=== PATIENT | female | born 1960 | race Two or more races ===

== ENCOUNTER 2022-12-21 20:54 | Inpatient (IN) | payer MEDICARE, OTHER ==
[~2022-12-21] VITALS: Ht 170.2 cm; Wt 87.0 kg
[2022-12-21] MEDS ORDERED: cloNIDine HCL 0.1 MG TAB PO ONE (21:00)
[2022-12-21 21:24] LABS: Basophils # (auto) 0.1 10 ^3/uL (0-0.2); Basophils % (auto) 0.5 % (0.0-2.0); Eosinophils # (auto) 0.3 10 ^3/uL (0-0.8); Eosinophils % (auto) 2.5 % (0.0-7.0); Hematocrit 33.1 % (36.0-46.0); Hemoglobin 11.2 g/dL (12.2-16.2); Lymphocytes # (auto) 1.3 10 ^3/uL (0.4-5.4); Lymphocytes % (auto) 12.3 % (10.0-50.0); Mean Corpuscular Hemoglobin 31.4 pg (28.0-32.0); Mean Corpuscular Hgb Conc. 33.7 g/dL (32.0-36.0); Monocytes # (auto) 0.6 10 ^3/uL (0-1.3); Monocytes % (auto) 6.1 % (0.0-12.0); Neutrophils # (auto) 8.2 10 ^3/uL (1.6-8.6); Neutrophils % (auto) 78.6 % (37.0-80.0); Red Blood Cells 3.56 10^6/uL (4.0-5.20); White Blood Cell 10.4 10^3/uL (4.4-10.8)
[2022-12-21 21:38] LABS: Urine Bacteria FEW /hpf (None Seen); Urine Blood Negative /uL (Negative); Urine Clarity Clear (Clear); Urine Color Colorless (Yellow); Urine Protein, UAD 2+ (Negative); Urine Specific Gravity 1.004 (1.001-1.035); Urine Urobilinogen Normal (Negative); Urine WBC <1 /hpf (0 - 5); Urine pH 6.5 (5.0-8.0)
[2022-12-21 21:39] LABS: Albumin 3.5 g/dL (3.4-5.0); Calcium 9.1 mg/dL (8.5-10.1); Magnesium 2.3 mg/dL (1.6-2.6); Potassium 4.8 mmol/L (3.5-5.1)
[2022-12-21 21:41] LABS: INR 1.01 (0.9-1.15); Partial Thromboplastin Time 30.7 SEC (24.5-34.5); Prothrombin Time 10.6 sec (9.3-11.8)
[2022-12-21 21:42] LABS: BUN/Creatinine Ratio 19.1 (10.0-20.0); Bilirubin, Total 0.2 mg/dL (0.2-1.0); Total Protein 8.4 g/dL (6.4-8.2)
[2022-12-21] MEDS ORDERED: ACETAMINOPHEN 325 MG TAB PO PRN (23:00)
[2022-12-21] MEDS ORDERED: hydrALAZINE HCL 20 MG/ML VL IV PRN (23:00)
[2022-12-21] MEDS ORDERED: HYDROcodone-ACET 5/325MG TAB PO PRN (23:00)
[2022-12-21] MEDS ORDERED: DEXTROSE (50%) 50ML SYRG IV PRN (23:00)
[2022-12-21] MEDS ORDERED: NITROGLYCERIN 0.4 MG SL TAB SL PRN (23:00)
[2022-12-21] MEDS ORDERED: DOCUSATE SOD 100 MG CAP PO PRN (23:00)
[2022-12-21] MEDS ORDERED: MORPHINE SULFATE INJ 2 MG/ml SYRG IV PRN (23:00)
[2022-12-21 23:30] VITALS: O2SAT 98
[2022-12-22] MEDS ORDERED: PANTOPRAZOLE 40 MG/10 ML VIAL INJ IV ONE (00:17)
[2022-12-22] MEDS: SODIUM CHLORIDE 0.9% 1,000 ML IV SCH ×2 (00:17→15:54)
[2022-12-22 06:01] LABS: Basophils # (auto) 0.1 10 ^3/uL (0-0.2); Basophils % (auto) 0.7 % (0.0-2.0); Eosinophils # (auto) 0.2 10 ^3/uL (0-0.8); Eosinophils % (auto) 2.9 % (0.0-7.0); Hematocrit 31.4 % (36.0-46.0); Hemoglobin 10.8 g/dL (12.2-16.2); Lymphocytes # (auto) 1.6 10 ^3/uL (0.4-5.4); Lymphocytes % (auto) 19.8 % (10.0-50.0); Mean Corpuscular Hgb Conc. 34.4 g/dL (32.0-36.0); Mean Corpuscular Volume 92.8 fL (80.0-100.0); Monocytes # (auto) 0.5 10 ^3/uL (0-1.3); Monocytes % (auto) 6.9 % (0.0-12.0); Neutrophils # (auto) 5.5 10 ^3/uL (1.6-8.6); Neutrophils % (auto) 69.7 % (37.0-80.0); Red Blood Cells 3.38 10^6/uL (4.0-5.20); Red Cell Distribution Width 13.2 % (11.8-14.3); White Blood Cell 7.9 10^3/uL (4.4-10.8)
[2022-12-22 06:13] LABS: Potassium 4.5 mmol/L (3.5-5.1)
[2022-12-22 06:21] LABS: Albumin 3.3 g/dL (3.4-5.0); BUN/Creatinine Ratio 19.8 (10.0-20.0); Bilirubin, Total 0.2 mg/dL (0.2-1.0); Calcium 8.9 mg/dL (8.5-10.1); Total Protein 7.7 g/dL (6.4-8.2)
[2022-12-22] MEDS: ACCU-CHEK COMFORT CURVE STRIP VI SCH ×3 (06:38→17:30)
[2022-12-22] MEDS: InsuLIN REG 1unit/0.01ml Soln (100units/ml) SC SCH ×3 (06:46→17:30)
[2022-12-22 08:00] VITALS: PULSE 66; RESP 14; O2SAT 96
[2022-12-22] MEDS: ONDANSETRON HCL 4 MG/2 ML VIAL IV PRN ×2 (08:32→14:35)
[2022-12-22] MEDS: MORPHINE SULFATE INJ 2 MG/ml SYRG IV PRN ×2 (09:27→14:36)
[2022-12-22] MEDS ORDERED: amLODIPine BESYLATE 5 MG TAB PO SCH (10:00)
[2022-12-22] MEDS ORDERED: ASPirin 81 mg TAB PO SCH (10:00)
[2022-12-22] MEDS ORDERED: FAMOTIDINE (10MG/ML) 2ML VL IV SCH (10:00)
[2022-12-22 15:54] VITALS: BP 127/56; PULSE 64; RESP 16; TEMP 97.8; O2SAT 95
[2022-12-22] MEDS ORDERED: AML5T PO (16:29)
[2022-12-22] MEDS ORDERED: FURO1TAB33 PO (16:29)
[2022-12-22 16:59] VITALS: O2SAT 98
[2022-12-22 17:21] VITALS: BP 120/53; TEMP 36.6
[2022-12-22] MEDS ORDERED: ATORVASTATIN 20 MG TAB PO SCH (22:00)
[2022-12-22] MEDS ORDERED: InsuLIN REG 1unit/0.01ml Soln (100units/ml) SC SCH (22:00)
== END 2022-12-22 17:45 | disposition home or self-care (01) | DRG 305 ==
LOC: EDBD 20:54 → ER 20:57 → TELE 22:53 → TELE-E-ADS 12-22 15:59
PROVIDERS: ADMIT Nurse Practitioner Family
DX: I16.1 Hypertensive emergency (principal); N17.9 Acute kidney failure, unspecified; N18.4 Chronic kidney disease, stage 4 (severe); E11.22 Type 2 diabetes mellitus with diabetic chronic kidney disease; I95.9 Hypotension, unspecified; E11.65 Type 2 diabetes mellitus with hyperglycemia; E11.40 Type 2 diabetes mellitus with diabetic neuropathy, unspecified; I12.9 Hypertensive chronic kidney disease with stage 1 through stage 4 chronic kidney disease, or unspecified chronic kidney disease; R07.9 Chest pain, unspecified; R79.89 Other specified abnormal findings of blood chemistry; I25.10 Atherosclerotic heart disease of native coronary artery without angina pectoris; Z85.038 Personal history of other malignant neoplasm of large intestine; Z86.73 Personal history of transient ischemic attack (TIA), and cerebral infarction without residual deficits; Z87.891 Personal history of nicotine dependence; Z89.519 Acquired absence of unspecified leg below knee; Z95.1 Presence of aortocoronary bypass graft; Z88.8 Allergy status to other drugs, medicaments and biological substances; Z88.2 Allergy status to sulfonamides
CPT/HCPCS: 36415; 70450; 76705; 80053; 81001; 82962; 83036; 83735; 83880; 84484; 85025; 85610; 85730; 86850; 86900; 86901; 87081; 93005; 93306; C9113; G0378; J1815; J2405; J3490

== ENCOUNTER 2023-05-31 16:38 | Emergency (ER) | payer MEDICARE, OTHER ==
[~2023-05-31] VITALS: Ht 170.2 cm; Wt 90.0 kg
[~2023-05-31 16:38] MED LIST: AML5T PO; FURO1TAB33 PO
[2023-05-31 18:30] LABS: Urine Bacteria MANY /hpf (None Seen); Urine Blood Negative /uL (Negative); Urine Clarity Clear (Clear); Urine Color Colorless (Yellow); Urine Protein, UAD 2+ (Negative); Urine Specific Gravity 1.012 (1.001-1.035); Urine Urobilinogen Normal (Negative); Urine WBC 3 /hpf (0 - 5)
[2023-05-31 21:48] VITALS: BP 113/67; PULSE 91; RESP 18; TEMP 97.4; O2SAT 97
== END 2023-05-31 22:20 | disposition home or self-care (01) ==
LOC: ER 16:38
DX: R22.42 Localized swelling, mass and lump, left lower limb (principal); E11.22 Type 2 diabetes mellitus with diabetic chronic kidney disease; I12.9 Hypertensive chronic kidney disease with stage 1 through stage 4 chronic kidney disease, or unspecified chronic kidney disease; N18.9 Chronic kidney disease, unspecified; Z86.73 Personal history of transient ischemic attack (TIA), and cerebral infarction without residual deficits; Z88.2 Allergy status to sulfonamides; Z87.891 Personal history of nicotine dependence
CPT/HCPCS: 81001; 93971

== ENCOUNTER 2024-04-11 21:25 | Inpatient (IN) | payer MEDICARE ==
[~2024-04-11] VITALS: Ht 170.2 cm; Wt 76.2 kg
--- NOTE | 2024-04-11 21:42 | ED.PDOC ---
HPI Comments 63-year-old female came to ER due to chest pains. Patient does have history of hypertension, diabetes, coronary artery disease, TIA status post CABG, left BKA and right foot partial amputation. States she has been having intermittent episodes of chest pains since yesterday, left-sided, sharp, radiating to her left arm. Associated with cough, nausea, shortness of breath and congestion. Blood pressure upon arrival was 216/80 mmHg Chief Complaint: Chest pain Time Seen by MD: 21:41 Primary Care Provider: MARYCHUY Reviewed Notes: Nurses Notes Allergies: Coded Allergies: Metoclopramide (Verified Allergy, Unknown, 12/21/22) Sulfa Antibiotics (Verified Allergy, Unknown, 12/21/22) Home Meds Active Scripts Furosemide (Lasix) 20 Mg Tb, 1 TAB PO DAILY for 30 Days, #30 TAB 1 Refill Prov:NELSON REILLY MD 12/22/22 Amlodipine Besylate (NORVASC TABLET) 5 Mg Tb, 5 MG PO DAILY for 30 Days, #30 TAB Prov:NELSON REILLY MD 12/22/22 Information Source: Patient Mode of Arrival: EMS Severity: Moderate Timing: Minutes Duration: Since onset Prehospital treatment: None Location: Chest (L) Radiation: Arm (L) Quality: Sharp Onset: At Rest Cardiac Risk Factors: HTN, Diabetes PE Risk Factors: None History of: Similar pain in past Associated Signs and Symptoms: SOB, Palpitations, Diaphoresis Past Medical History PAST MEDICAL HISTORY: Anemia, CAD, CKF, DM, HTN, [place], TIA Surgical History: BKA (Left), CABG, , Tonsillectomy Surgical History (Other): Right foot partial amputation [employer] History: No Pertinent [employer] History Family History Family History: Reviewed,noncontributory to illness Social History Smoker: Quit Greater Than 1 Year Alcohol: Sober Drugs: Denies Drug Use Lives In: Home Constitutional: denies: chills, diaphoresis, fatigue, fever, malaise, sweats, weakness, others EENTM: denies: blurred vision, double vision, ear bleeding, ear discharge, ear drainage, ear pain, ear ringing, eye pain, eye redness, hearing loss, mouth pain, mouth swelling, nasal discharge, nose bleeding, nose congestion, nose pain, photophobia, tearing, throat pain, throat swelling, voice changes, others Respiratory: reports: SOB at rest, shortness of breath; denies: cough, hemoptysis, orthopnea, SOB with excertion, stridor, wheezing, others Cardiovascular: reports: chest pain, dizzy spells, left arm pain; denies: diaphoresis, Dyspnea on exertion, edema, irregular heart beat, lightheadedness, palpitations, PND, syncope, others Gastrointestinal: denies: abdomen distended, abdominal pain, blood streaked bow els, constipated, diarrhea, dysphagia, difficulty swallowing, hematemesis, melena, nausea, poor appetite, poor fluid intake, rectal bleeding, rectal pain, vomiting, others Genitourinary: denies: abnormal vagina bleeding, burning, dyspareunia, dysuria, flank pain, frequency, hematuria, incontinence, pain, , vagina discharge, urgency, others Neurological: reports: dizziness; denies: fainting, headache, left sided numbness, left sided weakness, numbness, paresthesia, pre-existing deficit, right sided numbness, right sided weakness, seizure, speech problems, tingling, tremors, weakness, others Musculoskeletal: denies: back pain, gout, joint pain, joint swelling, muscle pain, muscle stiffness, neck pain, others Integumetry: denies: bruises, change in color, change in hair/nails, dryness, laceration, lesions, lumps, rash, wounds, others Allergic/Immunocompromised: denies: Difficulty Healing, Frequent Infections, Hives, Itching, others Hematologic/Lymphatic: denies: anemia, blood clots, easy bleeding, easy bruising, swollen glands, others Endocrine: denies: excessive hunger, excessive sweating, excessive thirst, excessive urination, flushing, intolerance to cold, intolerance to heat, unexplained weight gain, unexplained weight loss, others Psychiatric: denies: anxiety, bipolar disorder, depression, hopeless, panic di sorder, schizophrenia, sleepless, suicidal, others Physical Exam General Appearance: Mild Distress, Normal HEENT: Normal ENT Inspection, Pharynx Normal, TMs Normal Neck: Full Range of Motion, Non-Tender, Normal, Normal Inspection Respiratory: Chest Non-Tender, Lungs Clear, No Accessory Muscle Use, No Respiratory Distress, Normal Breath Sounds Cardiovascular: No Edema, No JVD, No Murmur, No Gallop, Normal Peripheral Pulses, Regular Rate/Rhythm Breast Exam: Deferred Gastrointestinal: No Organomegaly, Non Tender, No Pulsatile Mass, Normal Bowel Sounds, Soft Genitalia: Deferred Pelvic: Deferred Rectal: Deferred Extremities: No calf tenderness, Normal capillary refill, Normal inspection, Normal range of motion, Non-tender, No pedal edema, Other (left BKA, right par tial foot amputation) Musculoskeletal : Apperance: Normal Neurologic: Alert, hat braider II-XII nml as Tested, No Motor Deficits, Normal Affect, Normal Mood, No Sensory Deficits Cerebellar Function: Normal Reflexes: Normal Skin: Dry, Normal Color, Warm Lymphatic: No Adenopathy Was a procedure done? Was a procedure done?: No CP Differential Dx Differential Diagnosis: Angina, Anxiety / Panic Attack, Electrolyte Disorder Differential Diagnosis: CHF Differential Diagnosis: Angina, Chest Wall Pain, Costochondritis, Esophageal reflux/spasm, Gastritis, Myocardial Infarction, Pneumonia X-Ray, Labs, Meds, VS Vital Signs Date Time Temp Pulse Resp B/P (MAP) Pulse Ox O2 Delivery O2 Flow Rate FiO2 04/11/24 22:10 107 16 153/60 (91) 97 04/11/24 22:10 Room Air* 0 21 04/11/24 21:44 18 95 Room Air* 0 21 04/11/24 21:34 99.0 95 20 216/80 (125) 97 04/11/24 21:29 95 Lab Test 04/11/24 22:17 04/11/24 21:45 04/11/24 21:33 Range/Units Troponin I High Sensitivity 8 8 </=34 ng/L Urine Color Colorless Yellow Urine Clarity Clear Clear Urine pH 6.0 5.0-9.0 Urine Specific [place] 1.010 1.001-1.035 Urine Protein 2+ H Negative Urine Ketones Negative Negative Urine Blood Trace H Negative /uL Urine Nitrite Negative Negative Urine Bilirubin Negative Negative Urine Urobilinogen Normal Negative mg/dL Urine Leukocyte Esterase Negative Negative /uL Urine RBC 1 0 - 4 /hpf Urine WBC <1 0 - 5 /hpf Urine Squamous Epithelial Cells Few <5 /hpf Urine Bacteria None seen None Seen /hpf Urine Glucose 2+ H Normal mg/dL White Blood Count 8.6 4.4-10.8 10^3/uL Red Blood Count 3.26 L 4.0-5.20 10^6/uL Hemoglobin 10.0 L 12.2-16.2 g/dL Hematocrit 30.9 L 36.0-46.0 % Mean Corpuscular Volume 94.8 80.0-100.0 fL Mean Corpuscular Hemoglobin 30.8 28.0-32.0 pg Mean Corpuscular Hemoglobin Concent 32.5 32.0-36.0 g/dL Red Cell Distribution Width 13.8 11.8-14.3 % Platelet Count 312 140-450 10^3/uL Mean Platelet Volume 7.9 6.9-10.8 fL Neutrophils (%) (Auto) 63.5 37.0-80.0 % Lymphocytes (%) (Auto) 24.5 10.0-50.0 % Monocytes (%) (Auto) 5.4 0.0-12.0 % Eosinophils (%) (Auto) 6.0 0.0-7.0 % Basophils (%) (Auto) 0.6 0.0-2.0 % Neutrophils # (Auto) 5.5 1.6-8.6 10 ^3/uL Lymphocytes # (Auto) 2.1 0.4-5.4 10 ^3/uL Monocytes # (Auto) 0.5 0-1.3 10 ^3/uL Eosinophils # (Auto) 0.5 0-0.8 10 ^3/uL Basophils # (Auto) 0 0-0.2 10 ^3/uL Nucleated Red Blood Cells 0.1 % Sodium Level 141 136-145 mmol/L Potassium Level 4.6 3.5-5.1 mmol/L Chloride Level 111 H 98-107 mmol/L Carbon Dioxide Level 22 20-31 mmol/L Anion Gap 8 5-15 Blood Urea Nitrogen 35 H 9-23 mg/dL Creatinine 2.54 H 0.550-1.02 mg/dL Glomerular Filtration Rate Calc 21 >90 mL/min BUN/Creatinine Ratio 13.8 10.0-20.0 Serum Glucose 228 H 74-106 mg/dL Calcium Level 9.8 8.7-10.4 mg/dL Magnesium Level 1.7 1.6-2.6 mg/dL Total Bilirubin < 0.2 L 0.2-1.0 mg/dL Aspartate Amino Transferase (AST) 9 L 13-40 U/L Alanine Aminotransferase (ALT) 13 7-40 U/L Alkaline Phosphatase 87 46-116 U/L B-Type Natriuretic Peptide 216.55 0-100 pg/mL Total Protein 7.1 5.7-8.2 g/dL Albumin 4.1 3.2-4.8 g/dL Current Medications Medications (Trade) Dose Ordered Sig/Natalya Route Start Time Stop Time Status Last Admin Albuterol (Ventolin Medneb) 5 mg ONCE ONCE [facility] 04/11/24 21:45 04/11/24 21:46 DC 04/11/24 21:44 Ipratropium [place] (Atrovent Medneb) 0.5 mg ONCE ONCE N 04/11/24 21:45 04/11/24 21:46 DC 04/11/24 21:44 Prednisone 40 mg ONCE ONCE PO 04/11/24 21:45 04/11/24 21:46 DC 04/11/24 21:50 Time of 1ST Reevaluation: 21:35 Reevaluation 1ST: Unchanged Time of 2ND Reevaluation: 23:00 Reevaluation 2ND: Unchanged Patient Education/Counseling: Diagnosis, Treatment Family Education/Counseling: No Family Present Departure 1 Departure Time of Disposition: 23:01 Impression: Primary Impression: Acute renal injury Additional Impression: Acute coronary syndrome Disposition: ADMITTED INPATIENT Condition: Guarded Discharged With: Self Critical Care Note Critical Care Time?: Yes (35 min-critical care time only) Critical care comment: Hypertensive urgency Stability Stability form required: No Heart Score Heart Score: Heart Score Response (Comments) Value History Moderate Suspicious 1 EKG Repolarization Disturb 1 Age 45-64 1 Risk Factors >3 or Hx ASHD 2 Troponin Normal limit 0 Total 5 I personally scribed for HUI QUILES MD ([email or web address]) on 04/11/24 at 21:42. Electronically submitted by Vargas Grimm ([email or web address]). HUI QUILES MD Apr 11, 2024 21:42
[2024-04-11] MEDS: ALBUTEROL SULF 2.5 MG/0.5ML(0.5%) NEB SOLN HHN ONE (21:44)
[2024-04-11] MEDS: IPRATROPIUM BROM 0.5 MG/2.5ML INH SOL HHN ONE (21:44)
[2024-04-11] MEDS: predniSONE 20 MG TAB PO ONE (21:50)
[2024-04-11 21:51] LABS: Basophils # (auto) 0 10 ^3/uL (0-0.2); Basophils % (auto) 0.6 % (0.0-2.0); Eosinophils # (auto) 0.5 10 ^3/uL (0-0.8); Hematocrit 30.9 % (36.0-46.0); Lymphocytes # (auto) 2.1 10 ^3/uL (0.4-5.4); Lymphocytes % (auto) 24.5 % (10.0-50.0); Mean Corpuscular Hemoglobin 30.8 pg (28.0-32.0); Mean Corpuscular Hgb Conc. 32.5 g/dL (32.0-36.0); Mean Corpuscular Volume 94.8 fL (80.0-100.0); Monocytes # (auto) 0.5 10 ^3/uL (0-1.3); Monocytes % (auto) 5.4 % (0.0-12.0); Neutrophils # (auto) 5.5 10 ^3/uL (1.6-8.6); Neutrophils % (auto) 63.5 % (37.0-80.0); Nucleated Red Blood Cells % 0.1 %; Platelet Count (auto) 312 10^3/uL (140-450); Red Blood Cells 3.26 10^6/uL (4.0-5.20); Red Cell Distribution Width 13.8 % (11.8-14.3); White Blood Cell 8.6 10^3/uL (4.4-10.8)
[2024-04-11 22:00] LABS: Alanine Aminotransferase 13 U/L (7-40); Albumin 4.1 g/dL (3.2-4.8); Alkaline Phosphatase 87 U/L (46-116); Anion Gap 8 (5-15); BUN/Creatinine Ratio 13.8 (10.0-20.0); Calcium 9.8 mg/dL (8.7-10.4); Carbon Dioxide 22 mmol/L (20-31); Magnesium 1.7 mg/dL (1.6-2.6); Potassium 4.6 mmol/L (3.5-5.1); Sodium 141 mmol/L (136-145)
[2024-04-11 22:01] LABS: Total Protein 7.1 g/dL (5.7-8.2)
[2024-04-11 22:03] LABS: Urine Bacteria None Seen /hpf (None Seen)
[2024-04-11 22:05] LABS: Aspartate Aminotransferase 9 U/L (13-40); Bilirubin, Total < 0.2 mg/dL (0.2-1.0); Blood Urea Nitrogen 35 mg/dL (9-23); Chloride 111 mmol/L (98-107); Glucose 228 mg/dL (74-106)
--- NOTE | 2024-04-11 22:26 | DVH ---
EXAMINATION: AP portable chest radiograph CLINICAL HISTORY: SOB COMPARISON: None TECHNIQUE: Single view of the chest FINDINGS: Negative AP chest. No dominant consolidations. The costophrenic angles are clear. No sizable pleural effusions or pneumo thorax identified. The cardiomediastinal silhouette appears within normal limits given technique. IMPRESSION: 1. Negative AP chest.
[2024-04-11 22:47] LABS: Urine Blood TRACE /uL (Negative); Urine Clarity Clear (Clear); Urine Color Colorless (Yellow); Urine Protein, UAD 2+ (Negative); Urine Urobilinogen Normal (Negative); Urine WBC <1 /hpf (0 - 5)
[2024-04-11] MEDS: ASPirin 81 mg TAB PO ONE (23:20)
[2024-04-11] MEDS ORDERED: ACETAMINOPHEN 325 MG TAB PO PRN (23:30)
[2024-04-11] MEDS ORDERED: MORPHINE SULFATE INJ 2 MG/ml SYRG IV PRN (23:30)
[2024-04-11] MEDS ORDERED: IPRATROPIUM BROM 0.5 MG/2.5ML INH SOL NEB PRN (23:30)
[2024-04-11] MEDS ORDERED: ALBUTEROL SULF 2.5 MG/0.5ML(0.5%) NEB SOLN NEB PRN (23:30)
[2024-04-11] MEDS ORDERED: DOCUSATE SOD 100 MG CAP PO PRN (23:30)
[2024-04-11] MEDS ORDERED: DEXTROSE (50%) 50ML SYRG IV PRN (23:30)
[2024-04-11] MEDS ORDERED: HYDROcodone-ACET 5/325MG TAB PO PRN (23:30)
[2024-04-11] MEDS ORDERED: NITROGLYCERIN 0.4 MG SL TAB SL PRN (23:45)
[2024-04-11 23:50] VITALS: BP 153/60; PULSE 107; RESP 16; TEMP 99; O2SAT 97
--- NOTE | 2024-04-11 23:56 | DVHHP2 ---
History of Present Illness Reason for Visit: Chest pain History of Present Illness The patient is a 63-year-old female with multiple past medical history including anemia, ID, TIA, DM, and hypertension who presented to [facility] ED with complaint of chest pain. Patient reports she has been having intermittent episode of left-sided chest pain since yesterday, sharp in nature, radiating to the left arm, associated cough, nausea, shortness of breath, congestion, getting worse today that prompted this visit. Patient was seen and evaluated in the ED, laboratory data shows WBC 8.6, hemoglobin 10.0, hematocrit 30.9, platelets 312, sodium 141, potassium 4.6, BUN 35, creatinine 2.54, glucose 228, AST 9, ALT 13, troponin 8, BNP 216.55, blood pressure 216/80 trending down to 153/60, heart rate 96, temperature 99.0 F, O2 saturation 97% on room air. Please see medication orders section in the computer. On my assessment, patient denied chest pain at this moment, no headache, no dizziness, no diaphoresis, currently on oxygen, no abdominal pain, no diarrhea, no nausea, no vomiting, no fever, no chills. Patient was admitted for further evaluation and medical management. Past Medical History Anemia, HLD, CAD, CKF, DM, HTN, ID, TIA Past Surgical History Left BKA, CABG, , Tonsillectomy, Right foot partial amputation. Family History Reviewed, noncontributory to the management of this case. Past Social History The patient lives at home, quit smoking greater than 1 year, sober alcohol, denies illicit drugs abuse. Review of Systems Constitutional: Yes: Weakness; No: Fever, Chills, Sweats, Malaise, Other Eyes: No: Pain, Vision change, Conjunctivae inflammation, Eyelid inflammation, Other, Redness ENT: No: Ear pain, Ear discharge, Nose pain, Nose discharge, Nose congestion, Mouth pain, Mouth swelling, Throat pain, Throat swelling, Other Respiratory: Cough, Shortness of breath; No: Dry, SOB with excertion, Wheezing, Hemoptysis, Pleuritic Pain, Sputum, Wheezing, Other Cardiovascular: Chest Pain, Other (Left arm pain.); No: Palpitations, Orthopnea, Paroxysmal Noc. Dyspnea, Edema, Lt Headedness Gastrointestinal: Nausea; No: Vomiting, Abdominal Pain, Diarrhea, Constipation, Melena, Hematochezia, Other Genitourinary: No Dysuria, No Frequency, No Incontinence, No Hematuria, No Retention, No Other Musculoskeletal: No: other, neck pain, shoulder pain, arm pain, back pain, hand pain, leg pain, foot pain Skin: No: Rash, Lesions, Jaundice, Bruising, Other Neurological: Other (Dizziness); No: Weakness, Numbness, Incoordination, Change in speech, Confusion, Seizures Allergies: Coded Allergies: Metoclopramide (Verified Allergy, Unknown, 12/21/22) Sulfa Antibiotics (Verified Allergy, Unknown, 12/21/22) Medications Current Medications Medications Dose Ordered Sig/Natalya Route Start Time Stop Time Status Last Admin Dose Admin Albuterol 2.5 mg Q4HPRN PRN NEB 04/11/24 23:30 UNV Aspirin 81 mg DAILY PO 04/12/24 10:00 UNV Clopidogrel Bisulfate 75 mg DAILY PO 04/12/24 10:00 UNV Ipratropium [place] 0.5 mg Q4HPRN PRN NEB 04/11/24 23:30 UNV Atorvastatin Calcium 20 mg HS PO 04/12/24 22:00 UNV Amlodipine Besylate 5 mg DAILY PO 04/12/24 10:00 UNV Hydralazine HCl 10 mg Q6HP PRN IV 04/11/24 23:30 UNV Diagnostic Test (Pha) 1 strip ACHS 04/12/24 07:00 UNV Insulin Human Regular HS SC 04/12/24 22:00 UNV Insulin Human Regular AC SC 04/12/24 07:00 UNV Dextrose 50 ml UD PRN IV 04/11/24 23:30 UNV Sodium Chloride 10 ml Q8HR IV 04/12/24 06:00 UNV Acetaminophen/ Hydrocodone Bitart 1 tab Q4HP PRN PO 04/11/24 23:30 UNV Ondansetron HCl 4 mg Q4HP PRN IV 04/11/24 23:30 UNV Docusate Sodium 100 mg BIDPRN PRN PO 04/11/24 23:30 UNV Acetaminophen 650 mg Q6HP PRN PO 04/11/24 23:30 UNV Morphine Sulfate 2 mg Q4HPRN PRN IV 04/11/24 23:30 UNV Exam Vital Signs Vital Signs Date Time Temp Pulse Resp B/P (MAP) Pulse Ox O2 Delivery O2 Flow Rate FiO2 04/11/24 22:10 107 16 153/60 (91) 97 04/11/24 22:10 Room Air* 0 21 04/11/24 21:34 99.0 General Appearance: Alert, Oriented X3, Cooperative, No acute distress HEENT: Atraumatic, PERRLA, EOMI, Mucous membr. moist/pink Respiratory: Clear to auscultation, Normal air movement Cardiovascular: Regular rate, Normal S1, Normal S2, No murmurs Abdominal: Normal bowel sounds, Soft, No tenderness, No hepatospenomegaly, No masses Extremities: No clubbing, No cyanosis, No edema, Normal pulses, No tenderness/swelling Skin: No rashes, No breakdown, No significant lesion Neuro: Normal speech, Normal tone, Sensation intact, Cranial nerves 3-12 NL, Reflexes 2+, Other (Generalized weakness) Psych/Mental Status: Mental status NL, Mood NL Labs/Xrays Labs Test 04/11/24 22:17 04/11/24 21:45 04/11/24 21:33 Range/Units Troponin I High Sensitivity 8 </=34 ng/L Urine Color Colorless Yellow Urine Clarity Clear Clear Urine pH 6.0 5.0-9.0 Urine Specific [place] 1.010 1.001-1.035 Urine Protein 2+ H Negative Urine Ketones Negative Negative Urine Blood Trace H Negative /uL Urine Nitrite Negative Negative Urine Bilirubin Negative Negative Urine Urobilinogen Normal Negative mg/dL Urine Leukocyte Esterase Negative Negative /uL Urine RBC 1 0 - 4 /hpf Urine WBC <1 0 - 5 /hpf Urine Squamous Epithelial Cells Few <5 /hpf Urine Bacteria None seen None Seen /hpf Urine Glucose 2+ H Normal mg/dL White Blood Count 8.6 4.4-10.8 10^3/uL Red Blood Count 3.26 L 4.0-5.20 10^6/uL Hemoglobin 10.0 L 12.2-16.2 g/dL Hematocrit 30.9 L 36.0-46.0 % Mean Corpuscular Volume 94.8 80.0-100.0 fL Mean Corpuscular Hemoglobin 30.8 28.0-32.0 pg Mean Corpuscular Hemoglobin Concent 32.5 32.0-36.0 g/dL Red Cell Distribution Width 13.8 11.8-14.3 % Platelet Count 312 140-450 10^3/uL Mean Platelet Volume 7.9 6.9-10.8 fL Neutrophils (%) (Auto) 63.5 37.0-80.0 % Lymphocytes (%) (Auto) 24.5 10.0-50.0 % Monocytes (%) (Auto) 5.4 0.0-12.0 % Eosinophils (%) (Auto) 6.0 0.0-7.0 % Basophils (%) (Auto) 0.6 0.0-2.0 % Neutrophils # (Auto) 5.5 1.6-8.6 10 ^3/uL Lymphocytes # (Auto) 2.1 0.4-5.4 10 ^3/uL Monocytes # (Auto) 0.5 0-1.3 10 ^3/uL Eosinophils # (Auto) 0.5 0-0.8 10 ^3/uL Basophils # (Auto) 0 0-0.2 10 ^3/uL Nucleated Red Blood Cells 0.1 % Sodium Level 141 136-145 mmol/L Potassium Level 4.6 3.5-5.1 mmol/L Chloride Level 111 H 98-107 mmol/L Carbon Dioxide Level 22 20-31 mmol/L Anion Gap 8 5-15 Blood Urea Nitrogen 35 H 9-23 mg/dL Creatinine 2.54 H 0.550-1.02 mg/dL Glomerular Filtration Rate Calc 21 >90 mL/min BUN/Creatinine Ratio 13.8 10.0-20.0 Serum Glucose 228 H 74-106 mg/dL Calcium Level 9.8 8.7-10.4 mg/dL Magnesium Level 1.7 1.6-2.6 mg/dL Total Bilirubin < 0.2 L 0.2-1.0 mg/dL Aspartate Amino Transferase (AST) 9 L 13-40 U/L Alanine Aminotransferase (ALT) 13 7-40 U/L Alkaline Phosphatase 87 46-116 U/L B-Type Natriuretic Peptide 216.55 0-100 pg/mL Total Protein 7.1 5.7-8.2 g/dL Albumin 4.1 3.2-4.8 g/dL PATIENT: JAMAL LUNDBERGIAACCT: [id number] UNIT: [id number] : 1960 LOC: ER ROOM / BED: / AGE / SEX: 63 / F ADM STATUS: REG ER SERVICE 33 ORDERING PHYSICIAN: HUI QUILES MD PROCEDURE(s): CXRP - CHEST PORTABLE REASON: SOB ORDER NUMBER(s): [id number], ACCESSION NUMBER(s): [id number] EXAMINATION: AP portable chest radiograph CLINICAL HISTORY: SOB COMPARISON: None TECHNIQUE: Single view of the chest FINDINGS: Negative AP chest. No dominant consolidations. The costophrenic angles are clear. No sizable pleural effusions or pneumothorax identified. The cardiomediastinal silhouette appears within normal limits given technique. IMPRESSION: 1. Negative AP chest. Assessment/Plan Assessment/Plan Acute chest pain Hypertensive urgency Acute renal injury Elevated BNP Diabetes mellitus with hyperglycemia Plan 1. Admit to telemetry unit 2. Breathing treatment 3. Pain control management 4. Management of fluids and electrolytes 5. Consultation for hospitalist 6. Diagnostic tests chest x-ray 7. DVT prophylaxis-on aspirin 8. Repeat labs CBC, CMP in a.m. 9. Continue with current medical management 10. Treatment plan discussed with patient and RN. Patient verbalized und erstanding. Plan discussed with: Patient, Other (RN) My Orders Orders - CLAUDIA MURRELL DNP Procedure Category Date Status Time Albuterol Medneb PHA 04/11/24 Logged (Ventolin Medneb) 23:30 Aspirin Tablet PHA 04/12/24 Logged 10:00 Clopidogrel Bisulfate PHA 04/12/24 Logged (Plavix) 10:00 *Dr. Vernon Blanco CONS 04/11/24 Transmitted -[place] 23:17 Ipratropium Medneb PHA 04/11/24 Logged (Atrovent Medneb) 23:30 Atorvastatin (Lipitor) PHA 04/12/24 Logged 22:00 Amlodipine Tablet PHA 04/12/24 Logged (Norvasc Tablet) 10:00 Hydralazine Injection PHA 04/11/24 Logged (Apresoline Inject 23:30 Consistent DIET 04/12/24 Transmitted Carb(Ccho)Diabetes Breakfast Glucose Blood PHA 04/12/24 Logged (Accu-Chek Comfort 07:00 Insulin R (Human) PHA 04/12/24 Logged (Insulin R) 22:00 Insulin R (Human) PHA 04/12/24 Logged (Insulin R) 07:00 Dextrose 50% Syringe PHA 04/11/24 Logged 23:30 Allergies [facility] 04/11/24 In Process 23:17 Code Status CODE 04/11/24 Transmitted 23:17 Sodium Chloride Lock PHA 04/12/24 Logged (Saline Lock Ns) 06:00 Oxygen Per Hour RT 04/11/24 Transmitted 23:17 Hydrocodone-Acet PHA 04/11/24 Logged 5/325mg Tab ([place] 23:30 Ondansetron Hcl PHA 04/11/24 Logged (Zofran) 23:30 Docusate Sodium [facility] 04/11/24 Logged Capsule (Colace 23:30 Complete Blood Count LAB 04/12/24 Verified 04:00 Comprehensive LAB 04/12/24 Verified Metabolic Panel 04:00 Echo 2d Mode Cardiac US 04/11/24 Logged DOP 23:17 Condition: Serious [facility] 04/11/24 In Process 23:17 Acetaminophen Tablet [facility] 04/11/24 Logged (Tylenol Tablet) 23:30 Bedrest With Bathroom [facility] 04/11/24 In Process Privileg 23:17 Morphine Sulfate [facility] 04/11/24 Logged Injection 23:30 Sequential [facility] 04/11/24 In Process Compression Device Problem List: (1) Acute chest pain (2) Acute renal injury (3) Hypertensive urgency (4) Diabetes mellitus with hyperglycemia (5) Elevated brain natriuretic peptide (BNP) level Date of Service: Apr 11, 2024 Billing Provider: CLAUDIA MURRELL DNP Common Visit Codes: [id number] INP/OBS CARE (HIGH) CLAUDIA MURRELL DNP Apr 11, 2024 23:56
[2024-04-12] VITALS (8 sets, daily range): BP systolic 174–176; BP diastolic 73–84; PULSE 82–94; RESP 12–18; TEMP 97.6–97.8; O2SAT 94–97
[2024-04-12] MEDS: OXYCODONE W/ ACETAMINOPHEN 5/325MG TABLET PO PRN (05:24)
[2024-04-12] MEDS: SODIUM CHLOR 0.9% PF (SALINE LOCK) 10ML VIAL/SYR IV SCH (05:31)
[2024-04-12 05:34] LABS: Basophils # (auto) 0 10 ^3/uL (0-0.2); Basophils % (auto) 0.5 % (0.0-2.0); Eosinophils # (auto) 0 10 ^3/uL (0-0.8); Hematocrit 29.2 % (36.0-46.0); Hemoglobin 9.9 g/dL (12.2-16.2); Lymphocytes # (auto) 0.6 10 ^3/uL (0.4-5.4); Lymphocytes % (auto) 5.9 % (10.0-50.0); Mean Corpuscular Hemoglobin 31.8 pg (28.0-32.0); Mean Corpuscular Hgb Conc. 33.9 g/dL (32.0-36.0); Monocytes # (auto) 0.1 10 ^3/uL (0-1.3); Monocytes % (auto) 1.1 % (0.0-12.0); Neutrophils # (auto) 9.2 10 ^3/uL (1.6-8.6); Neutrophils % (auto) 92.5 % (37.0-80.0); Platelet Count (auto) 296 10^3/uL (140-450); Red Cell Distribution Width 13.6 % (11.8-14.3); White Blood Cell 9.9 10^3/uL (4.4-10.8)
[2024-04-12 05:51] LABS: Alanine Aminotransferase 11 U/L (7-40); Albumin 4.2 g/dL (3.2-4.8); Alkaline Phosphatase 84 U/L (46-116); Anion Gap 12 (5-15); BUN/Creatinine Ratio 13.7 (10.0-20.0); Calcium 9.7 mg/dL (8.7-10.4); Potassium 4.8 mmol/L (3.5-5.1); Sodium 139 mmol/L (136-145)
[2024-04-12 05:52] LABS: Total Protein 7.1 g/dL (5.7-8.2)
[2024-04-12 05:57] LABS: Aspartate Aminotransferase 11 U/L (13-40); Bilirubin, Total 0.2 mg/dL (0.2-1.0); Blood Urea Nitrogen 33 mg/dL (9-23); Carbon Dioxide 17 mmol/L (20-31); Chloride 110 mmol/L (98-107); Glucose 307 mg/dL (74-106)
[2024-04-12] MEDS: ACCU-CHEK COMFORT CURVE STRIP VI SCH (06:37)
[2024-04-12] MEDS: InsuLIN REG 1unit/0.01ml Soln (100units/ml) SC SCH ×2 (06:44→22:25)
[2024-04-12] MEDS: ONDANSETRON HCL 4 MG/2 ML VIAL IV PRN (08:25)
[2024-04-12] MEDS: MORPHINE SULFATE INJ 2 MG/ml SYRG IV PRN (08:26)
[2024-04-12] MEDS: ASPirin 81 mg TAB PO SCH (09:33)
[2024-04-12] MEDS: amLODIPine BESYLATE 5 MG TAB PO SCH (09:33)
[2024-04-12] MEDS: CLOPIDOGREL BISULFATE 75 MG TAB PO SCH (09:39)
--- NOTE | 2024-04-12 15:00 | DVHPN2 ---
Reviewed: Care Plan, H&P, Labs, Medications, Previous Orders, Radiology Changes from previous H/P or p: No Changes Eyes: No Pain, No Vision change, No Conjunctivae inflammation, No Eyelid inflammation, No Other, No Redness ENT: No Ear pain, No Ear discharge, No Nose pain, No Nose discharge, No Nose congestion, No Mouth pain, No Mouth swelling, No Throat pain, No Throat swelling, No Other Cardiovascular: Chest Pain; No Palpitations, No Orthopnea, No Paroxysmal Noc. Dyspnea, No Edema, No Lt Headedness; Other (Left arm pain.) Respiratory: Cough; No Dry; Shortness of breath; No SOB with excertion, No Wheezing, No Hemoptysis, No Pleuritic Pain, No Sputum, No Other Gastrointestinal: Nausea; No Vomiting, No Abdominal Pain, No Diarrhea, No Constipation, No Melena, No Hematochezia, No Other Genitourinary: No Dysuria, No Frequency, No Incontinence, No Hematuria, No Retention, No Other Musculoskeletal: No other, No neck pain, No shoulder pain, No arm pain, No back pain, No hand pain, No leg pain, No foot pain Skin: No Rash, No Lesions, No Jaundice, No Bruising, No Other Objective Vitals Vital Signs Date Time Temp Pulse Resp B/P (MAP) Pulse Ox O2 Delivery O2 Flow Rate FiO2 04/12/24 14:00 97.7 88 12 169/68 (101) 93 97.7 04/12/24 10:51 Room Air* 0 21 Medications Current Medications Medications Dose Ordered Sig/Natalya Route Start Time Stop Time Status Last Admin Dose Admin Albuterol 2.5 mg Q4HPRN PRN NEB 04/11/24 23:30 Aspirin 81 mg DAILY PO 04/12/24 10:00 04/12/24 09:33 81 MG Clopidogrel Bisulfate 75 mg DAILY PO 04/12/24 10:00 04/12/24 09:39 75 MG Ipratropium [place] 0.5 mg Q4HPRN PRN NEB 04/11/24 23:30 Atorvastatin Calcium 20 mg HS PO 04/12/24 22:00 Amlodipine Besylate 5 mg DAILY PO 04/12/24 10:00 04/12/24 09:33 5 MG Hydralazine HCl 10 mg Q6HP PRN IV 04/11/24 23:30 Diagnostic Test (Pha) 1 strip ACHS 04/12/24 07:00 04/12/24 11:14 1 STRIP Insulin Human Regular HS SC 04/12/24 22:00 Insulin Human Regular AC SC 04/12/24 07:00 04/12/24 11:21 15 UNITS Dextrose 50 ml UD PRN IV 04/11/24 23:30 Sodium Chloride 10 ml Q8HR IV 04/12/24 06:00 04/12/24 13:37 10 ML Ondansetron HCl 4 mg Q4HP PRN IV 04/11/24 23:30 04/12/24 13:31 4 MG Docusate Sodium 100 mg BIDPRN PRN PO 04/11/24 23:30 Acetaminophen 650 mg Q6HP PRN PO 04/11/24 23:30 Nitroglycerin 0.4 mg Q5MINP PRN SL 04/11/24 23:45 Morphine Sulfate 2 mg Q30M PRN IV 04/11/24 23:45 04/12/24 11:06 2 MG Oxycodone/ Acetaminophen 2 tab Q6HP PRN PO 04/12/24 00:15 04/12/24 14:57 2 TAB Laboratory Results Laboratory Tests 04/12/24 05:19 Chemistry Test 04/11/24 21:33 04/12/24 05:19 Albumin 4.1 g/dL (3.2-4.8) 4.2 g/dL (3.2-4.8) Calcium Level 9.8 mg/dL (8.7-10.4) 9.7 mg/dL (8.7-10.4) Magnesium Level 1.7 mg/dL (1.6-2.6) Total Protein 7.1 g/dL (5.7-8.2) 7.1 g/dL (5.7-8.2) Cardiac Markers Test 04/11/24 21:33 B-Type Natriuretic Peptide 216.55 pg/mL (0-100) LFT Test 04/11/24 21:33 04/12/24 05:19 Alanine Aminotransferase (ALT) 13 U/L (7-40) 11 U/L (7-40) Alkaline Phosphatase 87 U/L (46-116) 84 U/L (46-116) Aspartate Amino Transferase (AST) 9 U/L (13-40) L 11 U/L (13-40) L Total Bilirubin < 0.2 mg/dL (0.2-1.0) L 0.2 mg/dL (0.2-1.0) Urinalysis Test 04/11/24 21:45 Urine Color Colorless (Yellow) Urine Clarity Clear (Clear) Urine pH 6.0 (5.0-9.0) Urine Specific [place] 1.010 (1.001-1.035) Urine Protein 2+ (Negative) H Urine Ketones Negative (Negative) Urine Blood Trace /uL (Negative) H Urine Nitrite Negative (Negative) Urine Bilirubin Negative (Negative) Urine Urobilinogen Normal mg/dL (Negative) Urine Leukocyte Esterase Negative /uL (Negative) Urine RBC 1 /hpf (0 - 4) Urine WBC <1 /hpf (0 - 5) Urine Squamous Epithelial Cells Few /hpf (<5) Urine Bacteria None seen /hpf (None Seen) Urine Glucose 2+ mg/dL (Normal) H Labs and/or images reviewed: Labs reviewed by me, Image(s) reviewed by me Assessment/Plan Assessment/Plan Chest pain negative troponins: Cardiology consult Hypercholesterolemia History of coronary artery disease Uncontrolled diabetes: Insulin sliding scale History of MT History of TIA Chronic anemia CKD Time spent 60 minutes Patient is full code Advanced care planning time 20 minutes Plan discussed with: Patient My Orders Orders - WINNIE KRISHNAN MD Procedure Category Date Status Time * Cardiology Consult CONS 04/12/24 Transmitted 14:56 Date of Service: Apr 12, 2024 Billing Provider: WINNIE KRISHNAN MD Common Visit Codes: 90799-[id number] INP/OBS CARE(HIGH) Secondary Visit Codes: [id number] CARE PLAN 30 MINUTES WINNIE KRISHNAN MD Apr 12, 2024 15:00
--- NOTE | 2024-04-12 15:59 | DVHINCON2 ---
Date Seen: Apr 12, 2024 Referring Physician MD Sid Reason for Consultation Chest pain History of Present Illness This is a pleasant 63-year-old female who presented to the emergency room with a chief complaint of chest pain since . Describes her chest pain as substernal, nonradiating, sharp in nature described as a sticking a knife, and associated with TADEO and some lethargy. Underwent multiple 12 lead electrocardiogram revealing a sinus rhythm with premature ventricular contractions and without ST segment changes. Serial troponin levels are negative. Presented with a systolic blood pressure of 216 mmHg. States she has been compliant with her amlodipine therapy at home. Significant medical history includes coronary artery disease status post two-vessel coronary artery bypass graft at [facility] on 2007, severe peripheral arterial disease status post multiple PTAs with stent placement x 3DES to BLEs with latest intervention on 05/2023 and status post left BKA and right first/second toes amputations on , insulin-dependent diabetes mellitus, hypertension, dyslipidemia, advanced chronic kidney disease with history of temporary hemodialysis, history of colon cancer status post resection on 2014, and obesity. Past Medical History Past medical history reviewed. No other significant than mentioned above. Past Surgical History Two-vessel coronary artery bypass graft at [facility], 2007 Multiple PTAs with stent placement x 3DES to BLEs with latest intervention on 05/2023 Left BKA and right first/second toe amputations, History of colon cancer status post resection, 2014 x1, 1990 Family History Family history reviewed. Social History Denies the use of illicit drugs, alcohol, or tobacco use. Allergies: Coded Allergies: Metoclopramide (Verified Allergy, Unknown, 12/21/22) Sulfa Antibiotics (Verified Allergy, Unknown, 12/21/22) Home Meds Active Scripts Furosemide (Lasix) 20 Mg Tb, 1 TAB PO DAILY for 30 Days, #30 TAB 1 Refill Prov:NELSON REILLY MD 12/22/22 Amlodipine Besylate (NORVASC TABLET) 5 Mg Tb, 5 MG PO DAILY for 30 Days, #30 TAB Prov:NELSON REILLY MD 12/22/22 Home Meds Home medications reviewed. Current Medications Current Medications Medications (Trade) Dose Ordered Sig/Natalya Route PRN Reason Start Time Stop Time Status Last Admin Albuterol (Ventolin Medneb) 2.5 mg Q4HPRN PRN NEB SHORTNESS OF BREATH 04/11/24 23:30 Aspirin 81 mg DAILY PO 04/12/24 10:00 04/12/24 09:33 Clopidogrel Bisulfate (Plavix) 75 mg DAILY PO 04/12/24 10:00 04/12/24 09:39 Ipratropium [place] (Atrovent Medneb) 0.5 mg Q4HPRN PRN NEB SHORTNESS OF BREATH 04/11/24 23:30 Atorvastatin Calcium (Lipitor) 20 mg HS PO 04/12/24 22:00 Amlodipine Besylate (Norvasc Tablet) 5 mg DAILY PO 04/12/24 10:00 04/12/24 09:33 Hydralazine HCl (Apresoline Injection) 10 mg Q6HP PRN IV SBP>150 04/11/24 23:30 Diagnostic Test (Pha) (Accu-Chek Comfort Curve T) 1 strip ACHS 04/12/24 07:00 04/12/24 11:14 Insulin Human Regular (InsuLIN R) HS SC 04/12/24 22:00 Insulin Human Regular (InsuLIN R) AC SC 04/12/24 07:00 04/12/24 11:21 Dextrose 50 ml UD PRN IV Blood Sugar LESS THAN 60 04/11/24 23:30 Sodium Chloride (Saline Lock Ns) 10 ml Q8HR IV 04/12/24 06:00 04/12/24 13:37 Acetaminophen/ Hydrocodone Bitart ([place] 5/325MG Tab) 1 tab Q4HP PRN PO MODERATE PAIN (4-6 PAIN SCALE) 04/11/24 23:30 04/12/24 00:09 DC Ondansetron HCl (Zofran) 4 mg Q4HP PRN IV NAUSEA / VOMITING 04/11/24 23:30 04/12/24 13:31 Docusate Sodium (Colace Capsule) 100 mg BIDPRN PRN PO FOR CONSTIPATION 04/11/24 23:30 Acetaminophen (Tylenol Tablet) 650 mg Q6HP PRN PO PAIN SCALE 1-3 OR TEMP>100.4 04/11/24 23:30 Morphine Sulfate 2 mg Q4HPRN PRN IV SEVERE PAIN (7-10 PAIN SCALE) 04/11/24 23:30 04/12/24 00:10 DC Nitroglycerin (Ntrostat Sublingual) 0.4 mg Q5MINP PRN SL FOR CHEST PAIN 04/11/24 23:45 Morphine Sulfate 2 mg Q30M PRN IV FOR CHEST PAIN 04/11/24 23:45 04/12/24 11:06 Oxycodone/ Acetaminophen (Percocet 5/ 325MG Tablet) 2 tab Q6HP PRN PO SEVERE PAIN (7-10 PAIN SCALE) 04/12/24 00:15 04/12/24 14:57 Review of Systems Constitutional: No symptom reported Ears, Nose, & Throat: No symptom reported Eyes: No symptom reported Neurological: No symptoms reported Pulmonary/Respiratory: No symptom reported Cardiovascular: Chest pain Gastrointestinal: No symptom reported Genitourinary: No symptom reported Musculoskeletal: No symptom reported Skin: No symptom reported Psychiatric: No symptom reported Endocrine: No symptom reported Hemotologic/Lymphatic: No symptom reported Vital Signs Vital Signs Date Time Temp Pulse Resp B/P (MAP) Pulse Ox O2 Delivery O2 Flow Rate FiO2 04/12/24 14:00 97.7 88 12 169/68 (101) 93 97.7 04/12/24 10:51 Room Air* 0 21 Physical Exam General Appearance: Cooperative. Well developed. Obese. In no acute distress Head Exam: Normal inspection Neck Exam: Normal inspection. Non-tender. Normal alignment Pulmonary/Respiratory: Chest non-tender. Clear bilateral breath sounds Cardiovascular/Chest: Regular rate and rhythm. S1, S2. Sinus rhythm with PVCs. No murmurs. No JVD. Peripheral Pulses: 2+ Radial (R). 2+ Radial (L). 2+ Pedal (R). 2+ Pedal (L) Abdominal Exam: Normal bowel sounds. Soft. Nontender. No hepatospenomegaly. No masses Ankle Exam: Negative ankle edema Lower extremities: Negative lower extremity edema Neuro/Mental Status: A&O x4. Coherent Thoughts/Psych: Normal thought pattern. Appropriate mood and affect. Good judgement and insight Appearance: In no acute distress Skin Exam: Normal inspection. Normal color. Warm. Dry Labs/Diagnostic Data Labs Test 04/12/24 11:13 04/12/24 05:19 04/11/24 22:17 04/11/24 21:45 Range/Units POC Glucose 359 H 70-106 mg/dl White Blood Count 9.9 4.4-10.8 10^3/uL Red Blood Count 3.10 L 4.0-5.20 10^6/uL Hemoglobin 9.9 L 12.2-16.2 g/dL Hematocrit 29.2 L 36.0-46.0 % Mean Corpuscular Volume 94.0 80.0-100.0 fL Mean Corpuscular Hemoglobin 31.8 28.0-32.0 pg Mean Corpuscular Hemoglobin Concent 33.9 32.0-36.0 g/dL Red Cell Distribution Width 13.6 11.8-14.3 % Platelet Count 296 140-450 10^3/uL Mean Platelet Volume 7.9 6.9-10.8 fL Neutrophils (%) (Auto) 92.5 H 37.0-80.0 % Lymphocytes (%) (Auto) 5.9 L 10.0-50.0 % Monocytes (%) (Auto) 1.1 0.0-12.0 % Eosinophils (%) (Auto) 0.0 0.0-7.0 % Basophils (%) (Auto) 0.5 0.0-2.0 % Neutrophils # (Auto) 9.2 H 1.6-8.6 10 ^3/uL Lymphocytes # (Auto) 0.6 0.4-5.4 10 ^3/uL Monocytes # (Auto) 0.1 0-1.3 10 ^3/uL Eosinophils # (Auto) 0 0-0.8 10 ^3/uL Basophils # (Auto) 0 0-0.2 10 ^3/uL Nucleated Red Blood Cells 0.0 % Sodium Level 139 136-145 mmol/L Potassium Level 4.8 3.5-5.1 mmol/L Chloride Level 110 H 98-107 mmol/L Carbon Dioxide Level 17 L 20-31 mmol/L Anion Gap 12 5-15 Blood Urea Nitrogen 33 H 9-23 mg/dL Creatinine 2.41 H 0.550-1.02 mg/dL Glomerular Filtration Rate Calc 22 >90 mL/min BUN/Creatinine Ratio 13.7 10.0-20.0 Serum Glucose 307 H 74-106 mg/dL Calcium Level 9.7 8.7-10.4 mg/dL Total Bilirubin 0.2 0.2-1.0 mg/dL Aspartate Amino Transferase (AST) 11 L 13-40 U/L Alanine Aminotransferase (ALT) 11 7-40 U/L Alkaline Phosphatase 84 46-116 U/L Total Protein 7.1 5.7-8.2 g/dL Albumin 4.2 3.2-4.8 g/dL Troponin I High Sensitivity 8 </=34 ng/L Urine Color Colorless Yellow Urine Clarity Clear Clear Urine pH 6.0 5.0-9.0 Urine Specific [place] 1.010 1.001-1.035 Urine Protein 2+ H Negative Urine Ketones Negative Negative Urine Blood Trace H Negative /uL Urine Nitrite Negative Negative Urine Bilirubin Negative Negative Urine Urobilinogen Normal Negative mg/dL Urine Leukocyte Esterase Negative Negative /uL Urine RBC 1 0 - 4 /hpf Urine WBC <1 0 - 5 /hpf Urine Squamous Epithelial Cells Few <5 /hpf Urine Bacteria None seen None Seen /hpf Urine Glucose 2+ H Normal mg/dL Test 04/11/24 21:33 Range/Units Magnesium Level 1.7 1.6-2.6 mg/dL B-Type Natriuretic Peptide 216.55 0-100 pg/mL Assessment Chest pain in the setting of hypertensive urgency Rule out structural heart disease Coronary artery disease status post double-vessel CABG, on plavix Severe PAD status post PTAs with stent placement x 3DES Status post L BKA/R 1st & 2nd toe amputation Advanced CKD with hx of temporary HD Insulin-dependent diabetes mellitus, HgbA1C 7.5% Anemia and chronic disease Dyslipidemia Obesity Plan/Recommendation (Dr. Jimenez) Chest pain likely secondary to uncontrolled blood pressure. The patient was found only on amlodipine 5 mg q.d. Initiate metoprolol XL and nifedipine, uptitrate as necessary for blood pressure control. Continue Plavix therapy, low-dose Xarelto, and lipid lowering agent given severe peripheral arterial disease and history of amputations. Given advanced chronic kidney disease, we do not recommend any invasive cardiac procedures at this time. In the setting of an unremarkable echocardiogram, there is no further cardiac workup indicated at this time. The patient was advised to initiate a blood pressure log and to take it to her next appointment with Cardiology. Thank you for allowing us to participate in this patient's care. Please call if you have any questions or concerns. This medical document was created using an electronic medical record system with voice recognition software and computerized dictation system. Although this document has been carefully reviewed, there might still be some phonetic and typographical errors. Occasional wrong-word or ``sound-alike substitutions may have occurred due to the inherent limitations of voice recognition software. These areas are purely typographical due to imperfections of the software programs and do not reflect any compromise in the patient's medical care. Please read the chart carefully and recognize, using context, where these substitutions have occurred. Plan discussed with: Patient, Other Date of Service: Apr 12, 2024 Billing Provider: TANNER FIGUEROA Cardiology Common Codes: [id number] INP/OBS CARE (High) TANNER FIGUEROA Apr 12, 2024 15:59
[2024-04-12] MEDS: METOPROLOL SUCCINATE XL 50 MG TAB PO ONE (16:07)
--- NOTE | 2024-04-12 16:59 | DVHSR ---
APPROVED REPORT EXAM: LIMITED Two-dimensional and M-mode echocardiogram with Doppler and color Doppler. Blood Pressure: 168/74 mmHg INDICATION Elevated BNP Surgery/Intervention CABG: RISK FACTORS Height: 5' 7", Weight: 187 DIMENSIONS LVDd4.2 (3.8-5.7cm)LA (2D)3.3 (1.9-4.0cm)Aortic Root3.1 (2.0-3.7cm) LVDs2.9 (2.5-4.0cm)LA (MM) (1.9-4.0cm)Aortic Cusp Exc1.6 (1.5-2.0cm) EF (%) 60.0 (55-70%)Rt. Atrium4.0 (1.9-4.0cm)Asc. Aorta cm IVSd0.8 (0.7-1.1cm)RV (D) (1.8-2.4cm) PWd0.8 (0.7-1.1cm) Mitral Valve MitralMitral Stenosis E wave1.10m/sMV Mean GR.mmHg A wave1.30m/sMV Peak GR.mmHg E/A ratio0.82D MVAcm2 Aortic Valve Aortic ValveAortic Stenosis V10.90m/Kathy Mean GR.5mmHg V21.50m/Kathy Peak GR.9mmHg LVOT Diameter2.0 (1.8-2.4cm)Doppler AVA1.88cm2 Other Information Quality : Technically LimitedRhythm : Technically limited study due to body habitus. Conclusion lvef 60% by visual estimate no severe valve abnormalities noted normal rv function
--- NOTE | 2024-04-12 19:00 | DVHINCON2 ---
Date of service: Apr 12, 2024 Reason for Consultation PAULINE History of Present Illness 63 years old female with past medical history of Chronic kidney disease four, history of colon cancer status post resection stage II in 2015, diabetes for the past 30+ years, obesity, hypertension, dyslipidemia, left below-knee amputation, right metatarsal amputation, coronary artery disease with stent placement, presented with chief complaints of chest pain and chest pressure for the past two days her blood pressure is found to be very elevated patient sees mixer tender down the hill. Patient has extensive history of smoking in the past however stopped several years ago patient seen and examined in emergency room Past Medical History As per HPI Past Surgical History As per HPI Allergies: Coded Allergies: Metoclopramide (Verified Allergy, Unknown, 12/21/22) Sulfa Antibiotics (Verified Allergy, Unknown, 12/21/22) Home Meds Active Scripts Furosemide (Lasix) 20 Mg Tb, 1 TAB PO DAILY for 30 Days, #30 TAB 1 Refill Prov:NELSON REILLY MD 12/22/22 Amlodipine Besylate (NORVASC TABLET) 5 Mg Tb, 5 MG PO DAILY for 30 Days, #30 TAB Prov:NELSON REILLY MD 12/22/22 Current Medications Current Medications Medications (Trade) Dose Ordered Sig/Natalya Route PRN Reason Start Time Stop Time Status Last Admin Albuterol (Ventolin Medneb) 2.5 mg Q4HPRN PRN NEB SHORTNESS OF BREATH 04/11/24 23:30 Aspirin 81 mg DAILY PO 04/12/24 10:00 04/12/24 15:44 DC 04/12/24 09:33 Clopidogrel Bisulfate (Plavix) 75 mg DAILY PO 04/12/24 10:00 04/12/24 09:39 Ipratropium [place] (Atrovent Medneb) 0.5 mg Q4HPRN PRN NEB SHORTNESS OF BREATH 04/11/24 23:30 Atorvastatin Calcium (Lipitor) 20 mg HS PO 04/12/24 22:00 04/12/24 15:44 DC Amlodipine Besylate (Norvasc Tablet) 5 mg DAILY PO 04/12/24 10:00 04/12/24 15:44 DC 04/12/24 09:33 Hydralazine HCl (Apresoline Injection) 10 mg Q6HP PRN IV SBP>150 04/11/24 23:30 Diagnostic Test (Pha) (Accu-Chek Comfort Curve T) 1 strip ACHS 04/12/24 07:00 04/12/24 16:45 Insulin Human Regular (InsuLIN R) HS SC 04/12/24 22:00 Insulin Human Regular (InsuLIN R) AC SC 04/12/24 07:00 04/12/24 16:53 Dextrose 50 ml UD PRN IV Blood Sugar LESS THAN 60 04/11/24 23:30 Sodium Chloride (Saline Lock Ns) 10 ml Q8HR IV 04/12/24 06:00 04/12/24 13:37 Acetaminophen/ Hydrocodone Bitart ([place] 5/325MG Tab) 1 tab Q4HP PRN PO MODERATE PAIN (4-6 PAIN SCALE) 04/11/24 23:30 04/12/24 00:09 DC Ondansetron HCl (Zofran) 4 mg Q4HP PRN IV NAUSEA / VOMITING 04/11/24 23:30 04/12/24 13:31 Docusate Sodium (Colace Capsule) 100 mg BIDPRN PRN PO FOR CONSTIPATION 04/11/24 23:30 Acetaminophen (Tylenol Tablet) 650 mg Q6HP PRN PO PAIN SCALE 1-3 OR TEMP>100.4 04/11/24 23:30 Morphine Sulfate 2 mg Q4HPRN PRN IV SEVERE PAIN (7-10 PAIN SCALE) 04/11/24 23:30 04/12/24 00:10 DC Nitroglycerin (Ntrostat Sublingual) 0.4 mg Q5MINP PRN SL FOR CHEST PAIN 04/11/24 23:45 04/12/24 15:44 DC Morphine Sulfate 2 mg Q30M PRN IV FOR CHEST PAIN 04/11/24 23:45 04/12/24 11:06 Oxycodone/ Acetaminophen (Percocet 5/ 325MG Tablet) 2 tab Q6HP PRN PO SEVERE PAIN (7-10 PAIN SCALE) 04/12/24 00:15 04/12/24 14:57 Atorvastatin Calcium (Lipitor) 40 mg HS PO 04/12/24 22:00 Metoprolol Succinate (Toprol Xl) 25 mg DAILY PO 04/13/24 10:00 Nifedipine (Procardia Xl (Time-Release)) 30 mg DAILY PO 04/13/24 10:00 Rivaroxaban (Xarelto) 2.5 mg BID PO 04/12/24 22:00 Cilostazol (Pletal) 100 mg BID PO 04/12/24 22:00 Social History Denies any Review of Systems HEENT-denies headache, denies vision changes, no hearing issue, denies neck complaints, denies throat issues Respiratory system-denies cough, denies shortness of breath Cardiovascular system-positive chest pain chest pain, denies palpitations Abdomen-denies abdominal pain, denies nausea, denies vomiting, denies constipation or diarrhea Musculoskeletal-denies swelling in the legs, denies pain in the extremities Genitourinary-denies urinary symptoms like dysuria, stream issues Neuro-denies dizziness, denies seizures Psychiatric-denies psychiatric history H&P Exam Vital Signs/I&O Vital Sign Date Time Temp Pulse Resp B/P (MAP) Pulse Ox O2 Delivery O2 Flow Rate FiO2 04/12/24 18:32 97.6 82 16 176/73 (107) 95 97.6 04/12/24 18:32 Room Air* 0 21 Physical Exam General-not in any distress HEENT-normocephalic, no icterus, no pallor, neck supple Respiratory-fair air entry bilateral, no rhonchi, no wheeze [id number] heard, no murmurs appreciated Abdominal-soft, nontender, nondistended Musculoskeletal-no pedal edema, left BKA, right toe amputations Genitourinary-deferred Neuro-awake alert oriented x3, Psychiatric-not agitated, cooperative, Labs/Diagnostic Data Labs/Diagnostic Data Laboratory Tests Test 04/12/24 16:44 04/12/24 11:13 04/12/24 06:35 04/12/24 05:19 Range/Units POC Glucose 305 H 359 H 290 H 70-106 mg/dl White Blood Count 9.9 4.4-10.8 10^3/uL Red Blood Count 3.10 L 4.0-5.20 10^6/uL Hemoglobin 9.9 L 12.2-16.2 g/dL Hematocrit 29.2 L 36.0-46.0 % Mean Corpuscular Volume 94.0 80.0-100.0 fL Mean Corpuscular Hemoglobin 31.8 28.0-32.0 pg Mean Corpuscular Hemoglobin Concent 33.9 32.0-36.0 g/dL Red Cell Distribution Width 13.6 11.8-14.3 % Platelet Count 296 140-450 10^3/uL Mean Platelet Volume 7.9 6.9-10.8 fL Neutrophils (%) (Auto) 92.5 H 37.0-80.0 % Lymphocytes (%) (Auto) 5.9 L 10.0-50.0 % Monocytes (%) (Auto) 1.1 0.0-12.0 % Eosinophils (%) (Auto) 0.0 0.0-7.0 % Basophils (%) (Auto) 0.5 0.0-2.0 % Neutrophils # (Auto) 9.2 H 1.6-8.6 10 ^3/uL Lymphocytes # (Auto) 0.6 0.4-5.4 10 ^3/uL Monocytes # (Auto) 0.1 0-1.3 10 ^3/uL Eosinophils # (Auto) 0 0-0.8 10 ^3/uL Basophils # (Auto) 0 0-0.2 10 ^3/uL Nucleated Red Blood Cells 0.0 % Sodium Level 139 136-145 mmol/L Potassium Level 4.8 3.5-5.1 mmol/L Chloride Level 110 H 98-107 mmol/L Carbon Dioxide Level 17 L 20-31 mmol/L Anion Gap 12 5-15 Blood Urea Nitrogen 33 H 9-23 mg/dL Creatinine 2.41 H 0.550-1.02 mg/dL Glomerular Filtration Rate Calc 22 >90 mL/min BUN/Creatinine Ratio 13.7 10.0-20.0 Serum Glucose 307 H 74-106 mg/dL Calcium Level 9.7 8.7-10.4 mg/dL Total Bilirubin 0.2 0.2-1.0 mg/dL Aspartate Amino Transferase (AST) 11 L 13-40 U/L Alanine Aminotransferase (ALT) 11 7-40 U/L Alkaline Phosphatase 84 46-116 U/L Total Protein 7.1 5.7-8.2 g/dL Albumin 4.2 3.2-4.8 g/dL Test 04/11/24 22:17 04/11/24 21:45 04/11/24 21:33 Range/Units Troponin I High Sensitivity 8 8 </=34 ng/L Urine Color Colorless Yellow Urine Clarity Clear Clear Urine pH 6.0 5.0-9.0 Urine Specific [place] 1.010 1.001-1.035 Urine Protein 2+ H Negative Urine Ketones Negative Negative Urine Blood Trace H Negative /uL Urine Nitrite Negative Negative Urine Bilirubin Negative Negative Urine Urobilinogen Normal Negative mg/dL Urine Leukocyte Esterase Negative Negative /uL Urine RBC 1 0 - 4 /hpf Urine WBC <1 0 - 5 /hpf Urine Squamous Epithelial Cells Few <5 /hpf Urine Bacteria None seen None Seen /hpf Urine Glucose 2+ H Normal mg/dL White Blood Count 8.6 4.4-10.8 10^3/uL Red Blood Count 3.26 L 4.0-5.20 10^6/uL Hemoglobin 10.0 L 12.2-16.2 g/dL Hematocrit 30.9 L 36.0-46.0 % Mean Corpuscular Volume 94.8 80.0-100.0 fL Mean Corpuscular Hemoglobin 30.8 28.0-32.0 pg Mean Corpuscular Hemoglobin Concent 32.5 32.0-36.0 g/dL Red Cell Distribution Width 13.8 11.8-14.3 % Platelet Count 312 140-450 10^3/uL Mean Platelet Volume 7.9 6.9-10.8 fL Neutrophils (%) (Auto) 63.5 37.0-80.0 % Lymphocytes (%) (Auto) 24.5 10.0-50.0 % Monocytes (%) (Auto) 5.4 0.0-12.0 % Eosinophils (%) (Auto) 6.0 0.0-7.0 % Basophils (%) (Auto) 0.6 0.0-2.0 % Neutrophils # (Auto) 5.5 1.6-8.6 10 ^3/uL Lymphocytes # (Auto) 2.1 0.4-5.4 10 ^3/uL Monocytes # (Auto) 0.5 0-1.3 10 ^3/uL Eosinophils # (Auto) 0.5 0-0.8 10 ^3/uL Basophils # (Auto) 0 0-0.2 10 ^3/uL Nucleated Red Blood Cells 0.1 % Sodium Level 141 136-145 mmol/L Potassium Level 4.6 3.5-5.1 mmol/L Chloride Level 111 H 98-107 mmol/L Carbon Dioxide Level 22 20-31 mmol/L Anion Gap 8 5-15 Blood Urea Nitrogen 35 H 9-23 mg/dL Creatinine 2.54 H 0.550-1.02 mg/dL Glomerular Filtration Rate Calc 21 >90 mL/min BUN/Creatinine Ratio 13.8 10.0-20.0 Serum Glucose 228 H 74-106 mg/dL Calcium Level 9.8 8.7-10.4 mg/dL Magnesium Level 1.7 1.6-2.6 mg/dL Total Bilirubin < 0.2 L 0.2-1.0 mg/dL Aspartate Amino Transferase (AST) 9 L 13-40 U/L Alanine Aminotransferase (ALT) 13 7-40 U/L Alkaline Phosphatase 87 46-116 U/L B-Type Natriuretic Peptide 216.55 0-100 pg/mL Total Protein 7.1 5.7-8.2 g/dL Albumin 4.1 3.2-4.8 g/dL Assessment Acute kidney injury on Chronic kidney disease four hemodynamic mediated in the setting of hypertensive emergency Hypertensive emergency Chronic kidney disease four secondary to diabetes and hypertension Colon cancer status post resection Diabetes for 30 years Coronary artery disease Below-knee amputation left toe amputations right Recommendations Recommend blood pressure control Increase nifedipine to 60 mg Use p.r.n. hydralazine if needed Kidney ultrasound check UPCR We will follow closely Plan discussed with: Patient MONTSE KIDD MD Apr 12, 2024 18:59
[2024-04-12] MEDS: NIFEdipine ER 30 MG TAB PO SCH (20:57)
--- NOTE | 2024-04-12 21:41 | DVH ---
US KIDNEY INDICATION: nanda TECHNIQUE: Multiple real-time sonographic images of the kidneys and bladder were obtained. COMPARISON: None FINDINGS: The right kidney measures 5.89 cm in length, which is normal in size. There is normal echogenicity of the right kidney. No hydronephrosis. There is a 1.4 x 1.1 by 1.3 cm anechoic lesion in the right kid noel consistent with a simple cyst. The left kidney measures 8.82 cm in length, which is normal in size. There is normal echogenicity of the left kidney. No hydronephrosis. 1.72 x 1.62 x 1.89 cm anechoic lesion upper pole left kidney cons istent with a simple cyst No large intraluminal masses are seen in the bladder. Prior to voiding the bladder volume measures volume 522.33 mL cc. Following voiding, the bladder volume residual measures 8.64 mL cc. IMPRESSION: 1. Right kidney measures 5.89 cm with no hydronephrosis 2. Left kidney measures 8.82 cm there is no hydronephrosis 3. Small renal cysts are noted bilaterally. 4. Postvoid volume is 8.64 mL
[2024-04-12] MEDS ORDERED: ATORVASTATIN 20 MG TAB PO SCH (22:00)
[2024-04-12] MEDS: ATORVASTATIN 20 MG TAB PO SCH (22:17)
[2024-04-12] MEDS: CILOSTAZOL 100 MG TAB PO SCH (22:18)
[2024-04-12] MEDS: RIVAROXABAN 2.5 MG TAB PO SCH (22:32)
[2024-04-13] VITALS (11 sets, daily range): BP systolic 118–153; BP diastolic 35–71; PULSE 70–80; RESP 18–20; TEMP 97.8–98.4; O2SAT 93–97
--- NOTE | 2024-04-13 07:59 | DVHPN2 ---
Reviewed: Care Plan, H&P, Labs, Medications, Previous Orders, Radiology Changes from previous H/P or p: No Changes Eyes: No Pain, No Vision change, No Conjunctivae inflammation, No Eyelid inflammation, No Other, No Redness ENT: No Ear pain, No Ear discharge, No Nose pain, No Nose discharge, No Nose congestion, No Mouth pain, No Mouth swelling, No Throat pain, No Throat swelling, No Other Cardiovascular: Chest Pain; No Palpitations, No Orthopnea, No Paroxysmal Noc. Dyspnea, No Edema, No Lt Headedness; Other (Left arm pain.) Respiratory: Cough; No Dry; Shortness of breath; No SOB with excertion, No Wheezing, No Hemoptysis, No Pleuritic Pain, No Sputum, No Other Gastrointestinal: Nausea; No Vomiting, No Abdominal Pain, No Diarrhea, No Constipation, No Melena, No Hematochezia, No Other Genitourinary: No Dysuria, No Frequency, No Incontinence, No Hematuria, No Retention, No Other Musculoskeletal: No other, No neck pain, No shoulder pain, No arm pain, No back pain, No hand pain, No leg pain, No foot pain Skin: No Rash, No Lesions, No Jaundice, No Bruising, No Other Objective Vitals Vital Signs Date Time Temp Pulse Resp B/P (MAP) Pulse Ox O2 Delivery O2 Flow Rate FiO2 04/13/24 06:33 97 Room Air* 0 21 04/13/24 05:00 98.0 74 18 134/49 (77) 98.0 Intake/Output Intake and Output 04/13/24 07:00 Intake Total 425 ml Balance 425 ml Intake Oral 425 ml # Voids 5 Medications Current Medications Medications Dose Ordered Sig/Natalya Route Start Time Stop Time Status Last Admin Dose Admin Albuterol 2.5 mg Q4HPRN PRN NEB 04/11/24 23:30 Clopidogrel Bisulfate 75 mg DAILY PO 04/12/24 10:00 04/12/24 09:39 75 MG Ipratropium [place] 0.5 mg Q4HPRN PRN NEB 04/11/24 23:30 Hydralazine HCl 10 mg Q6HP PRN IV 04/11/24 23:30 Diagnostic Test (Pha) 1 strip ACHS 04/12/24 07:00 04/13/24 06:22 1 STRIP Insulin Human Regular HS SC 04/12/24 22:00 04/12/24 22:25 6 UNITS Insulin Human Regular AC SC 04/12/24 07:00 04/13/24 06:26 3 UNITS Dextrose 50 ml UD PRN IV 04/11/24 23:30 Sodium Chloride 10 ml Q8HR IV 04/12/24 06:00 04/13/24 06:21 10 ML Ondansetron HCl 4 mg Q4HP PRN IV 04/11/24 23:30 04/12/24 22:09 4 MG Docusate Sodium 100 mg BIDPRN PRN PO 04/11/24 23:30 Acetaminophen 650 mg Q6HP PRN PO 04/11/24 23:30 Oxycodone/ Acetaminophen 2 tab Q6HP PRN PO 04/12/24 00:15 04/13/24 01:21 2 TAB Atorvastatin Calcium 40 mg HS PO 04/12/24 22:00 04/12/24 22:17 40 MG Metoprolol Succinate 25 mg DAILY PO 04/13/24 10:00 Rivaroxaban 2.5 mg BID PO 04/12/24 22:00 Cilostazol 100 mg BID PO 04/12/24 22:00 04/12/24 22:18 100 MG Nifedipine 60 mg DAILY PO 04/12/24 19:00 04/12/24 20:57 60 MG Laboratory Results Laboratory Tests 04/12/24 05:19 Urinalysis Test 04/11/24 21:45 Urine Color Colorless (Yellow) Urine Clarity Clear (Clear) Urine pH 6.0 (5.0-9.0) Urine Specific [place] 1.010 (1.001-1.035) Urine Protein 2+ (Negative) H Urine Ketones Negative (Negative) Urine Blood Trace /uL (Negative) H Urine Nitrite Negative (Negative) Urine Bilirubin Negative (Negative) Urine Urobilinogen Normal mg/dL (Negative) Urine Leukocyte Esterase Negative /uL (Negative) Urine RBC 1 /hpf (0 - 4) Urine WBC <1 /hpf (0 - 5) Urine Squamous Epithelial Cells Few /hpf (<5) Urine Bacteria None seen /hpf (None Seen) Urine Glucose 2+ mg/dL (Normal) H Labs and/or images reviewed: Labs reviewed by me, Image(s) reviewed by me Assessment/Plan Assessment/Plan Chest pain negative troponins: Cardiology consult Dr. Nicholas appreciated, echo 60 % ejection fraction Hypercholesterolemia History of coronary artery disease Uncontrolled diabetes 30 years: Insulin sliding scale History of [place] History of TIA History of left BKA 2012 History of right 1st and 2nd toe amputation 2007 Chronic nonhealing right foot infection: Patient has a scheduled appointment with her hydroelectric plant technician Ashok Moran on 04-17-24 for right forefoot amputation Hypertensive emergency: Nifedipine Colon cancer status post resection Chronic anemia PAULINE on CKD: nephro consult appreciated Time spent 65 minutes Patient is full code Advanced care planning time 20 minutes Plan discussed with: Patient My Orders Orders - WINNIE KRISHNAN MD Procedure Category Date Status Time * Cardiology Consult CONS 04/12/24 Transmitted 14:56 Date of Service: Apr 13, 2024 Billing Provider: WINNIE KRISHNAN MD Common Visit Codes: [id number] CARE 30-74 MIN WINNIE KRISHNAN MD Apr 13, 2024 07:58
--- NOTE | 2024-04-13 08:52 | DVHPN2 ---
Progress Note Date Seen: Apr 13, 2024 Medical Necessity Reason Pt with a Central, PICC or Fol: No Subjective Patient reports: Feels better Other Systems: no chest pain bp improved today Objective vital signs Vital Sign Date Time Temp Pulse Resp B/P (MAP) Pulse Ox O2 Delivery O2 Flow Rate FiO2 04/13/24 06:33 97 Room Air* 0 21 04/13/24 05:00 98.0 74 18 134/49 (77) 98.0 Total Intake and Output 04/12/24 04/12/24 04/13/24 15:00 23:00 07:00 Intake Total 425 ml Balance 425 ml medications Current Medications Medications Dose Ordered Sig/Natalya Route Start Time Stop Time Status Last Admin Dose Admin Albuterol 2.5 mg Q4HPRN PRN NEB 04/11/24 23:30 Ipratropium [place] 0.5 mg Q4HPRN PRN NEB 04/11/24 23:30 Hydralazine HCl 10 mg Q6HP PRN IV 04/11/24 23:30 Diagnostic Test (Pha) 1 strip ACHS 04/12/24 07:00 04/13/24 06:22 1 STRIP Insulin Human Regular HS SC 04/12/24 22:00 04/12/24 22:25 6 UNITS Insulin Human Regular AC SC 04/12/24 07:00 04/13/24 06:26 3 UNITS Dextrose 50 ml UD PRN IV 04/11/24 23:30 Sodium Chloride 10 ml Q8HR IV 04/12/24 06:00 04/13/24 06:21 10 ML Ondansetron HCl 4 mg Q4HP PRN IV 04/11/24 23:30 04/12/24 22:09 4 MG Docusate Sodium 100 mg BIDPRN PRN PO 04/11/24 23:30 Acetaminophen 650 mg Q6HP PRN PO 04/11/24 23:30 Oxycodone/ Acetaminophen 2 tab Q6HP PRN PO 04/12/24 00:15 04/13/24 01:21 2 TAB Atorvastatin Calcium 40 mg HS PO 04/12/24 22:00 04/12/24 22:17 40 MG Metoprolol Succinate 25 mg DAILY PO 04/13/24 10:00 Cilostazol 100 mg BID PO 04/12/24 22:00 04/12/24 22:18 100 MG Nifedipine 60 mg DAILY PO 04/12/24 19:00 04/12/24 20:57 60 MG Examination: GENERAL:Abnormal, HEENT:Abnormal, LUNGS:Abnormal, CVS:Abnormal, ABDOMEN:Abnormal laboratory and microbiology Laboratory Tests 04/12/24 05:19 Test 04/12/24 05:19 Range/Units Serum Glucose 307 H 74-106 mg/dL Problem List/Assessment/Plan Problem List/Assessment/Plan cad cabg htn HL DM BKA PAD arterial uS for RLE has wound graft for next week trops are - cont bp control Plan discussed with: Patient Date of Service: Apr 13, 2024 Billing Provider: PAUL ST MD Common Visit Codes: NOT BILLABLE PAUL ST MD Apr 13, 2024 08:52
[2024-04-13] MEDS ORDERED: NIFEdipine ER 30 MG TAB PO SCH (10:00)
[2024-04-13] MEDS: METOPROLOL SUCCINATE XL 50 MG TAB PO SCH (11:05)
--- NOTE | 2024-04-13 14:26 | DVH ---
CLINICAL HISTORY: Peripheral arterial disease. Right SFA stent and left SFA bypass graft. History of right toe amputation. Left below-knee amputation. TECHNIQUE: Bilateral lower extremity arterial duplex exam was performed. Grayscale, color Doppler, an d spectral waveform analysis was performed. COMPARISON: None FINDINGS: Right Lower Extremity: Absent flow in the SFA proximal to distal. Monophasic waveforms throughout th e right lower extremity. Severe plaque at the common femoral. Left Lower Extremity: Absent flow in the SFA and popliteal arteries. Left below-knee amputation. Mon ophasic waveforms in the common femoral and profunda. Failed left SFA bypass graft with no flow demon strated in the graft. Severe plaque of the common femoral artery. EXAMINATION DATA: RIGHT PSV (cm/sec) PSYCHIATRIC NURSING ASSISTANT 85.8 Profunda 69 SFA Prox 0 SFA Mid 0 SFA Dist 0 POP A 51 METAL TANK ERECTOR 20 DPA 12 LEFT PSV (cm/sec) PSYCHIATRIC NURSING ASSISTANT 70 Profunda 65 SFA Prox 0 SFA Mid 0 SFA Dist 0 POP A 0 IMPRESSION: 1. No flow demonstrated in the right SFA proximal through distal. 2. Failed left femoral bypass graft and no flow in the quechan SFA or popliteal arteries. 3. Additional findings as described above.
--- NOTE | 2024-04-13 17:10 | DVHPN2 ---
Progress Note Date Seen: Apr 13, 2024 Medical Necessity Reason Pt with a Central, PICC or Fol: No Subjective Patient reports: No new complaints Review of Systems: HEENT:Normal, CVS:Normal, RESPIRATORY:Normal, GI:Normal, :Normal, MSK:Abnormal, NEURO:Normal Objective vital signs Vital Sign Date Time Temp Pulse Resp B/P (MAP) Pulse Ox O2 Delivery O2 Flow Rate FiO2 04/13/24 13:00 97.9 70 18 136/67 (90) 97 97.9 04/13/24 07:43 Room Air* 0 21 Total Intake and Output 04/12/24 04/12/24 04/13/24 15:00 23:00 07:00 Intake Total 425 ml Balance 425 ml medications Current Medications Medications Dose Ordered Sig/Natalya Route Start Time Stop Time Status Last Admin Dose Admin Albuterol 2.5 mg Q4HPRN PRN NEB 04/11/24 23:30 Ipratropium [place] 0.5 mg Q4HPRN PRN NEB 04/11/24 23:30 Hydralazine HCl 10 mg Q6HP PRN IV 04/11/24 23:30 Diagnostic Test (Pha) 1 strip ACHS 04/12/24 07:00 04/13/24 11:43 1 STRIP Insulin Human Regular HS SC 04/12/24 22:00 04/12/24 22:25 6 UNITS Insulin Human Regular AC SC 04/12/24 07:00 04/13/24 13:03 12 UNITS Dextrose 50 ml UD PRN IV 04/11/24 23:30 Sodium Chloride 10 ml Q8HR IV 04/12/24 06:00 04/13/24 16:18 10 ML Ondansetron HCl 4 mg Q4HP PRN IV 04/11/24 23:30 04/13/24 12:57 4 MG Docusate Sodium 100 mg BIDPRN PRN PO 04/11/24 23:30 Acetaminophen 650 mg Q6HP PRN PO 04/11/24 23:30 Oxycodone/ Acetaminophen 2 tab Q6HP PRN PO 04/12/24 00:15 Hold 04/13/24 12:59 2 TAB Atorvastatin Calcium 40 mg HS PO 04/12/24 22:00 04/12/24 22:17 40 MG Metoprolol Succinate 25 mg DAILY PO 04/13/24 10:00 04/13/24 11:05 25 MG Cilostazol 100 mg BID PO 04/12/24 22:00 04/13/24 10:56 100 MG Nifedipine 60 mg DAILY PO 04/12/24 19:00 04/13/24 10:57 60 MG Acetaminophen/ Hydrocodone Bitart 1 tab Q6HPRN PRN PO 04/13/24 14:30 Examination: GENERAL:Normal, HEENT:Normal, NECK:Normal, LUNGS:Normal, CVS:Normal, ABDOMEN:Normal, MSK:Abnormal (bka left ,amputation rt), SKIN:Abnormal, NEURO:Normal, :Normal laboratory and microbiology Laboratory Tests 04/12/24 05:19 Test 04/12/24 05:19 Range/Units Serum Glucose 307 H 74-106 mg/dL Problem List/Assessment/Plan Problem List/Assessment/Plan Acute kidney injury on Chronic kidney disease four hemodynamic mediated in the setting of hypertensive emergency Hypertensive emergency Chronic kidney disease four secondary to diabetes and hypertension Colon cancer status post resection Diabetes for 30 years Coronary artery disease Below-knee amputation left toe amputations right Recommendations Recommend blood pressure control Increase nifedipine to 60 mg Use p.r.n. hydralazine if needed Kidney ultrasound--small kidneys check UPCR-pending We will follow closely Plan discussed with: Patient My Orders My Orders Orders - MONTSE KIDD MD Procedure Category Date Status Time Nifedipine Er PHA 04/12/24 In Process (Procardia Xl 19:00 Kidney US 04/12/24 Resulted 19:03 Urine Creatinine LAB 04/13/24 Verified 17:08 Urine Protein LAB 04/13/24 Verified 17:08 Urine Sodium LAB 04/13/24 Verified 17:08 MONTSE KIDD MD Apr 13, 2024 17:10
[2024-04-13] MEDS: HYDROcodone-ACET 5/325MG TAB PO PRN (18:15)
[2024-04-14] VITALS (10 sets, daily range): BP systolic 113–164; BP diastolic 62–76; PULSE 76–89; RESP 16–18; TEMP 97.5–98.1; O2SAT 94–97
[2024-04-14] MEDS ORDERED: VANCOMYCIN PER PHARMACY 0 MG IV SCH (09:45)
--- NOTE | 2024-04-14 09:45 | DVHPN2 ---
Reviewed: Care Plan, H&P, Labs, Medications, Previous Orders, Radiology Changes from previous H/P or p: No Changes Eyes: No Pain, No Vision change, No Conjunctivae inflammation, No Eyelid inflammation, No Other, No Redness ENT: No Ear pain, No Ear discharge, No Nose pain, No Nose discharge, No Nose congestion, No Mouth pain, No Mouth swelling, No Throat pain, No Throat swelling, No Other Cardiovascular: Chest Pain; No Palpitations, No Orthopnea, No Paroxysmal Noc. Dyspnea, No Edema, No Lt Headedness; Other (Left arm pain.) Respiratory: Cough; No Dry; Shortness of breath; No SOB with excertion, No Wheezing, No Hemoptysis, No Pleuritic Pain, No Sputum, No Other Gastrointestinal: Nausea; No Vomiting, No Abdominal Pain, No Diarrhea, No Constipation, No Melena, No Hematochezia, No Other Genitourinary: No Dysuria, No Frequency, No Incontinence, No Hematuria, No Retention, No Other Musculoskeletal: No other, No neck pain, No shoulder pain, No arm pain, No back pain, No hand pain, No leg pain, No foot pain Skin: No Rash, No Lesions, No Jaundice, No Bruising, No Other Objective Vitals Vital Signs Date Time Temp Pulse Resp B/P (MAP) Pulse Ox O2 Delivery O2 Flow Rate FiO2 04/14/24 09:16 85 139/76 04/14/24 07:45 16 96 Room Air* 0 21 04/14/24 05:00 97.7 97.7 Intake/Output Intake and Output 04/14/24 07:00 Intake Total 980 ml Output Total 600 ml Balance 380 ml Intake Oral 980 ml Output Urine Total 600 ml # Voids 1 Medications Current Medications Medications Dose Ordered Sig/Natalya Route Start Time Stop Time Status Last Admin Dose Admin Albuterol 2.5 mg Q4HPRN PRN NEB 04/11/24 23:30 Ipratropium [place] 0.5 mg Q4HPRN PRN NEB 04/11/24 23:30 Hydralazine HCl 10 mg Q6HP PRN IV 04/11/24 23:30 Diagnostic Test (Pha) 1 strip ACHS 04/12/24 07:00 04/14/24 06:21 1 STRIP Insulin Human Regular HS SC 04/12/24 22:00 04/13/24 21:38 3 UNITS Insulin Human Regular AC SC 04/12/24 07:00 04/14/24 06:24 3 UNITS Dextrose 50 ml UD PRN IV 04/11/24 23:30 Sodium Chloride 10 ml Q8HR IV 04/12/24 06:00 04/14/24 06:21 10 ML Ondansetron HCl 4 mg Q4HP PRN IV 04/11/24 23:30 04/14/24 03:50 4 MG Docusate Sodium 100 mg BIDPRN PRN PO 04/11/24 23:30 Acetaminophen 650 mg Q6HP PRN PO 04/11/24 23:30 Oxycodone/ Acetaminophen 2 tab Q6HP PRN PO 04/12/24 00:15 Hold 04/13/24 12:59 2 TAB Atorvastatin Calcium 40 mg HS PO 04/12/24 22:00 04/13/24 21:45 40 MG Metoprolol Succinate 25 mg DAILY PO 04/13/24 10:00 04/14/24 09:16 25 MG Cilostazol 100 mg BID PO 04/12/24 22:00 04/14/24 09:13 100 MG Nifedipine 60 mg DAILY PO 04/12/24 19:00 04/14/24 09:14 60 MG Acetaminophen/ Hydrocodone Bitart 1 tab Q6HPRN PRN PO 04/13/24 14:30 04/13/24 18:15 1 TAB Laboratory Results Laboratory Tests 04/12/24 05:19 Urinalysis Test 04/11/24 21:45 Urine Color Colorless (Yellow) Urine Clarity Clear (Clear) Urine pH 6.0 (5.0-9.0) Urine Specific [place] 1.010 (1.001-1.035) Urine Protein 2+ (Negative) H Urine Ketones Negative (Negative) Urine Blood Trace /uL (Negative) H Urine Nitrite Negative (Negative) Urine Bilirubin Negative (Negative) Urine Urobilinogen Normal mg/dL (Negative) Urine Leukocyte Esterase Negative /uL (Negative) Urine RBC 1 /hpf (0 - 4) Urine WBC <1 /hpf (0 - 5) Urine Squamous Epithelial Cells Few /hpf (<5) Urine Bacteria None seen /hpf (None Seen) Urine Glucose 2+ mg/dL (Normal) H Labs and/or images reviewed: Labs reviewed by me, Image(s) reviewed by me Assessment/Plan Assessment/Plan Chest pain negative troponins: Cardiology consult Dr. Nicholas appreciated, echo 60 % ejection fraction Hypercholesterolemia History of coronary artery disease Uncontrolled diabetes 30 years: Insulin sliding scale History of [place] History of TIA History of left BKA 2012 History of right 1st and 2nd toe amputation 2007 Bilateral peripheral arterial disease: We will await further plan by Dr. Nicholas Chronic nonhealing right foot infection: Patient has a scheduled appointment with her rough and trueing machine operator Ashok Moran on 04-17-24 for right forefoot amputation vancomycin per pharmacy Hypertensive emergency: Nifedipine Colon cancer status post resection Chronic anemia PAULINE on CKD: nephro consult appreciated Time spent 65 minutes Patient is full code Advanced care planning time 20 minutes Plan discussed with: Patient My Orders Orders - WINNIE KRISHNAN MD Procedure Category Date Status Time * Dietary Consult CONS 04/13/24 Transmitted 13:53 Cleanse Wound With CELESTE 04/13/24 In Process Wound Clean 12:40 Hydrocodone-Acet PHA 04/13/24 In Process 5/325mg Tab ([place] 14:30 Date of Service: Apr 14, 2024 Billing Provider: WINNIE KRISHNAN MD Common Visit Codes: [id number] INP/OBS CARE(HIGH) WINNIE KRISHNAN MD Apr 14, 2024 09:45
--- NOTE | 2024-04-14 11:12 | DVHPN2 ---
Progress Note - Dictate Date Seen: Apr 14, 2024 Medical Necessity Reason Pt with a Central, PICC or Fol: No vital signs Vital Sign Date Time Temp Pulse Resp B/P (MAP) Pulse Ox O2 Delivery O2 Flow Rate FiO2 04/14/24 09:16 85 139/76 04/14/24 09:00 98.1 16 96 98.1 04/14/24 07:45 Room Air* 0 21 Total Intake and Output 04/13/24 04/13/24 04/14/24 15:00 23:00 07:00 Intake Total 120 ml 360 ml 500 ml Output Total 600 ml Balance 120 ml -240 ml 500 ml medications Current Medications Medications Dose Ordered Sig/Natalya Route Start Time Stop Time Status Last Admin Dose Admin Albuterol 2.5 mg Q4HPRN PRN NEB 04/11/24 23:30 Ipratropium [place] 0.5 mg Q4HPRN PRN NEB 04/11/24 23:30 Hydralazine HCl 10 mg Q6HP PRN IV 04/11/24 23:30 Diagnostic Test (Pha) 1 strip ACHS 04/12/24 07:00 04/14/24 06:21 1 STRIP Insulin Human Regular HS SC 04/12/24 22:00 04/13/24 21:38 3 UNITS Insulin Human Regular AC SC 04/12/24 07:00 04/14/24 06:24 3 UNITS Dextrose 50 ml UD PRN IV 04/11/24 23:30 Sodium Chloride 10 ml Q8HR IV 04/12/24 06:00 04/14/24 06:21 10 ML Ondansetron HCl 4 mg Q4HP PRN IV 04/11/24 23:30 04/14/24 10:59 4 MG Docusate Sodium 100 mg BIDPRN PRN PO 04/11/24 23:30 Acetaminophen 650 mg Q6HP PRN PO 04/11/24 23:30 Oxycodone/ Acetaminophen 2 tab Q6HP PRN PO 04/12/24 00:15 Hold 04/13/24 12:59 2 TAB Atorvastatin Calcium 40 mg HS PO 04/12/24 22:00 04/13/24 21:45 40 MG Metoprolol Succinate 25 mg DAILY PO 04/13/24 10:00 04/14/24 09:16 25 MG Cilostazol 100 mg BID PO 04/12/24 22:00 12/2/24 09:13 100 MG Nifedipine 60 mg DAILY PO 04/12/24 19:00 04/14/24 09:14 60 MG Acetaminophen/ Hydrocodone Bitart 1 tab Q6HPRN PRN PO 04/13/24 14:30 04/14/24 10:59 1 TAB Vancomycin HCl 0 ml @ 0 mls/hr UD IV 04/14/24 09:45 laboratory and microbiology Laboratory Tests 04/12/24 05:19 Test 04/12/24 05:19 Range/Units Serum Glucose 307 H 74-106 mg/dL Assessment/Plan Acute kidney injury on Chronic kidney disease four hemodynamic mediated in the setting of hypertensive emergency Hypertensive emergency Chronic kidney disease 4 secondary to diabetes and hypertension Colon cancer status post resection Diabetes for 30 years Coronary artery disease Below-knee amputation left toe amputations right Right foot infection blood pressure control improved nifedipine to 60 mg Use p.r.n. hydralazine if needed Kidney ultrasound--small kidneys check UPCR-pending currently on vanco rec close monitoring on troughs Plan discussed with: Patient STEPHANIE PANIAGUA MD Apr 14, 2024 11:12
[2024-04-14] MEDS: VANCOMYCIN 1GM/200ML PREMIX 200 ML IV ONE (11:16)
[2024-04-14 12:00] LABS: Creatinine, Urine 102.26 mg/dL (30.0-125.0)
[2024-04-14 12:03] LABS: Protein, Urine 558.6 mg/dL (1-14)
--- NOTE | 2024-04-14 12:27 | ECG ---
[facility] Test Date: 2024-04-11 Test Time: 21:29:33 Pat Name: LUCRECIA LUNDBERG Department: ER Room: 0214T A Gender: F Coffee Shop Manager: JAMES : 1960 Requested By: HUI QUILES Order Number: [id number] Reading MD: Kb Encinas Measurements Intervals [place] Rate: 95 P: 82 MN: 173 QRS: 87 QRSD: 101 T: -13 QT: 364 QTc: 458 Interpretive Statements Sinus rhythm Multiple ventricular premature complexes Borderline right axis deviation Borderline repolarization abnormality Electronically Signed On 04-16-2024 16:09:00 PST by Kb Encinas Please click the below link to view image of tracing.
[2024-04-14] MEDS: hydrALAZINE HCL 20 MG/ML VL IV PRN (12:31)
[2024-04-14] MEDS: HYDROmorphone HCL 2 MG/ML VL/or syr IV PRN (17:13)
[2024-04-15 01:00] VITALS: BP 144/64; PULSE 73; RESP 18; TEMP 98.1; O2SAT 92
[2024-04-15] MEDS: HYDROcodone-ACET 5/325MG TAB PO PRN (04:32)
[2024-04-15 05:00] VITALS: BP 128/65; PULSE 78; RESP 18; TEMP 97.8; O2SAT 94
[2024-04-15 07:19] LABS: Basophils # (auto) 0.1 10 ^3/uL (0-0.2); Basophils % (auto) 0.6 % (0.0-2.0); Eosinophils # (auto) 0.4 10 ^3/uL (0-0.8); Eosinophils % (auto) 3.7 % (0.0-7.0); Hematocrit 32.5 % (36.0-46.0); Hemoglobin 10.9 g/dL (12.2-16.2); Lymphocytes # (auto) 2.7 10 ^3/uL (0.4-5.4); Lymphocytes % (auto) 25.2 % (10.0-50.0); Mean Corpuscular Hemoglobin 31.6 pg (28.0-32.0); Mean Corpuscular Hgb Conc. 33.6 g/dL (32.0-36.0); Monocytes # (auto) 0.8 10 ^3/uL (0-1.3); Monocytes % (auto) 7.3 % (0.0-12.0); Neutrophils # (auto) 6.8 10 ^3/uL (1.6-8.6); Neutrophils % (auto) 63.2 % (37.0-80.0); Platelet Count (auto) 382 10^3/uL (140-450); Red Blood Cells 3.45 10^6/uL (4.0-5.20); Red Cell Distribution Width 13.5 % (11.8-14.3); White Blood Cell 10.7 10^3/uL (4.4-10.8)
[2024-04-15 08:00] VITALS: PULSE 75
[2024-04-15 09:00] VITALS: BP 125/64; PULSE 68; RESP 17; TEMP 98; O2SAT 94
--- NOTE | 2024-04-15 09:43 | DVHPN2 ---
Progress Note - Dictate Date Seen: Apr 15, 2024 Medical Necessity Reason Pt with a Central, PICC or Fol: No Subjective BP has improved vital signs Vital Sign Date Time Temp Pulse Resp B/P (MAP) Pulse Ox O2 Delivery O2 Flow Rate FiO2 04/15/24 09:00 98.0 68 17 125/64 (84) 94 98.0 04/14/24 20:00 Room Air* 0 N/A Nasal Cannula* Total Intake and Output 04/14/24 04/14/24 04/15/24 15:00 23:00 07:00 Intake Total 450 ml 600 ml Balance 450 ml 600 ml medications Current Medications Medications Dose Ordered Sig/Natalya Route Start Time Stop Time Status Last Admin Dose Admin Hydralazine HCl 10 mg Q6HP PRN IV 04/11/24 23:30 04/14/24 12:31 10 MG Diagnostic Test (Pha) 1 strip ACHS 04/12/24 07:00 04/15/24 06:01 1 STRIP Insulin Human Regular HS SC 04/12/24 22:00 04/14/24 21:36 4 UNITS Insulin Human Regular AC SC 04/12/24 07:00 04/15/24 06:07 6 UNITS Dextrose 50 ml UD PRN IV 04/11/24 23:30 Sodium Chloride 10 ml Q8HR IV 04/12/24 06:00 04/15/24 05:12 10 ML Ondansetron HCl 4 mg Q4HP PRN IV 04/11/24 23:30 04/15/24 09:10 4 MG Docusate Sodium 100 mg BIDPRN PRN PO 04/11/24 23:30 Acetaminophen 650 mg Q6HP PRN PO 04/11/24 23:30 Oxycodone/ Acetaminophen 2 tab Q6HP PRN PO 04/12/24 00:15 Hold 04/13/24 12:59 2 TAB Atorvastatin Calcium 40 mg HS PO 04/12/24 22:00 04/14/24 21:44 40 MG Metoprolol Succinate 25 mg DAILY PO 04/13/24 10:00 04/14/24 09:16 25 MG Cilostazol 100 mg BID PO 04/12/24 22:00 04/14/24 21:44 100 MG Nifedipine 60 mg DAILY PO 04/12/24 19:00 04/14/24 09:14 60 MG Vancomycin HCl 0 ml @ 0 mls/hr UD IV 04/14/24 09:45 Acetaminophen/ Hydrocodone Bitart 1 tab Q6HPRN PRN PO 04/14/24 16:00 04/15/24 04:32 1 TAB Hydromorphone HCl 2 mg Q6HP PRN IV 04/14/24 16:00 04/15/24 06:32 2 MG objective left BKA Right Foot Amputation laboratory and microbiology Laboratory Tests 04/15/24 06:46 04/12/24 05:19 Test 04/12/24 05:19 Range/Units Serum Glucose 307 H 74-106 mg/dL Assessment/Plan Acute kidney injury on Chronic kidney disease four hemodynamic mediated in the setting of hypertensive emergency Hypertensive emergency Chronic kidney disease 4 secondary to diabetes and hypertension Colon cancer status post resection Diabetes for 30 years Coronary artery disease Below-knee amputation left toe amputations right Right foot infection severe PVD with limited distal flow not amendable at this time for revascularization blood pressure control improved nifedipine to 60 mg Use p.r.n. hydralazine if needed Kidney ultrasound--small kidneys 6cm Right and 8 cm left 5gm proteinuria currently on vanco rec close monitoring on troughs overall poor prognosis due to multiple significant comorbidities will discuss with patient advance renal disease and renal replacement preparation. Patient will require renal clinic followup Dietary Evaluation Review Comments: add renal specific 60 g prtein to her current CCHO -60 diet Expected Outcomes/Goals: Controlled DM, avoid uremic syndrome. gradual weight loss. Plan discussed with: Patient STEPHANIE PANIAGUA MD Apr 15, 2024 09:43
--- NOTE | 2024-04-15 09:46 | DVHPN2 ---
Reviewed: Care Plan, H&P, Labs, Medications, Previous Orders, Radiology Changes from previous H/P or p: No Changes Eyes: No Pain, No Vision change, No Conjunctivae inflammation, No Eyelid inflammation, No Other, No Redness ENT: No Ear pain, No Ear discharge, No Nose pain, No Nose discharge, No Nose congestion, No Mouth pain, No Mouth swelling, No Throat pain, No Throat swelling, No Other Cardiovascular: Chest Pain; No Palpitations, No Orthopnea, No Paroxysmal Noc. Dyspnea, No Edema, No Lt Headedness; Other (Left arm pain.) Respiratory: Cough; No Dry; Shortness of breath; No SOB with excertion, No Wheezing, No Hemoptysis, No Pleuritic Pain, No Sputum, No Other Gastrointestinal: Nausea; No Vomiting, No Abdominal Pain, No Diarrhea, No Constipation, No Melena, No Hematochezia, No Other Genitourinary: No Dysuria, No Frequency, No Incontinence, No Hematuria, No Retention, No Other Musculoskeletal: No other, No neck pain, No shoulder pain, No arm pain, No back pain, No hand pain, No leg pain, No foot pain Skin: No Rash, No Lesions, No Jaundice, No Bruising, No Other Objective Vitals Vital Signs Date Time Temp Pulse Resp B/P (MAP) Pulse Ox O2 Delivery O2 Flow Rate FiO2 04/15/24 09:00 98.0 68 17 125/64 (84) 94 98.0 04/14/24 20:00 Room Air* 0 N/A Nasal Cannula* Intake/Output Intake and Output 04/15/24 07:00 Intake Total 1050 ml Balance 1050 ml Intake Oral 1050 ml # Voids 4 Medications Current Medications Medications Dose Ordered Sig/Natalya Route Start Time Stop Time Status Last Admin Dose Admin Hydralazine HCl 10 mg Q6HP PRN IV 04/11/24 23:30 04/14/24 12:31 10 MG Diagnostic Test (Pha) 1 strip ACHS 04/12/24 07:00 04/15/24 06:01 1 STRIP Insulin Human Regular HS SC 04/12/24 22:00 04/14/24 21:36 4 UNITS Insulin Human Regular AC SC 04/12/24 07:00 04/15/24 06:07 6 UNITS Dextrose 50 ml UD PRN IV 04/11/24 23:30 Sodium Chloride 10 ml Q8HR IV 04/12/24 06:00 04/15/24 05:12 10 ML Ondansetron HCl 4 mg Q4HP PRN IV 04/11/24 23:30 04/15/24 09:10 4 MG Docusate Sodium 100 mg BIDPRN PRN PO 04/11/24 23:30 Acetaminophen 650 mg Q6HP PRN PO 04/11/24 23:30 Oxycodone/ Acetaminophen 2 tab Q6HP PRN PO 04/12/24 00:15 Hold 04/13/24 12:59 2 TAB Atorvastatin Calcium 40 mg HS PO 04/12/24 22:00 04/14/24 21:44 40 MG Metoprolol Succinate 25 mg DAILY PO 04/13/24 10:00 04/14/24 09:16 25 MG Cilostazol 100 mg BID PO 04/12/24 22:00 04/14/24 21:44 100 MG Nifedipine 60 mg DAILY PO 04/12/24 19:00 04/14/24 09:14 60 MG Vancomycin HCl 0 ml @ 0 mls/hr UD IV 04/14/24 09:45 Acetaminophen/ Hydrocodone Bitart 1 tab Q6HPRN PRN PO 04/14/24 16:00 04/15/24 04:32 1 TAB Hydromorphone HCl 2 mg Q6HP PRN IV 04/14/24 16:00 04/15/24 06:32 2 MG Laboratory Results Laboratory Tests 04/12/24 05:19 04/15/24 06:46 Urinalysis Test 04/11/24 21:45 04/14/24 11:15 Urine Color Colorless (Yellow) Urine Clarity Clear (Clear) Urine pH 6.0 (5.0-9.0) Urine Specific [place] 1.010 (1.001-1.035) Urine Protein 2+ (Negative) H Urine Ketones Negative (Negative) Urine Blood Trace /uL (Negative) H Urine Nitrite Negative (Negative) Urine Bilirubin Negative (Negative) Urine Urobilinogen Normal mg/dL (Negative) Urine Leukocyte Esterase Negative /uL (Negative) Urine RBC 1 /hpf (0 - 4) Urine WBC <1 /hpf (0 - 5) Urine Squamous Epithelial Cells Few /hpf (<5) Urine Bacteria None seen /hpf (None Seen) Urine Glucose 2+ mg/dL (Normal) H Urine Creatinine 102.26 mg/dL (30.0-125.0) Urine Sodium 54 mmol/L (40-220) Urine Total Protein 558.6 mg/dL (1-14) H Labs and/or images reviewed: Labs reviewed by me, Image(s) reviewed by me Assessment/Plan Assessment/Plan Chest pain negative troponins: Cardiology consult Dr. Nicholas appreciated, echo 60 % ejection fraction Hypercholesterolemia History of coronary artery disease Uncontrolled diabetes 30 years: Insulin sliding scale History of [place] History of TIA History of left BKA 2012 History of right 1st and 2nd toe amputation 2007 Bilateral peripheral arterial disease: We will await further plan by Dr. Nicholas; per patient she will follow up with her Cardiology through her [facility] Chronic nonhealing right foot infection: Patient has a scheduled appointment with her stretch press operator Ashok Moran on 04-17-24 for right forefoot amputation vancomycin per pharmacy Hypertensive emergency: Nifedipine Colon cancer status post resection Chronic anemia PAULINE on CKD: nephro consult appreciated Time spent 55 minutes Patient is full code Advanced care planning time 20 minutes Plan discussed with: Patient My Orders Orders - WINNIE KRISHNAN MD Procedure Category Date Status Time Vancomycin Per PHA 04/14/24 In Process Pharmacy 09:45 Hydrocodone-Acet PHA 04/14/24 In Process 5/325mg Tab ([place] 16:00 Hydromorphone PHA 04/14/24 In Process Injection ([place] 16:00 Date of Service: Apr 15, 2024 Billing Provider: WINNIE KRISHNAN MD Common Visit Codes: [id number] INP/OBS CARE(HIGH) WINNIE KRISHNAN MD Apr 15, 2024 09:46
[2024-04-15] MEDS ORDERED: HYDR-4902 PO (09:50)
[2024-04-15] MEDS ORDERED: NIFE1TAB30 PO (09:50)
[2024-04-15] MEDS ORDERED: ATOR-507 PO (09:50)
[2024-04-15] MEDS ORDERED: METO25TA93 PO (09:50)
--- NOTE | 2024-04-15 09:56 | DVHDS2 ---
Discharge Summary Date of Admission Apr 11, 2024 at 23:36 Date of Discharge: Apr 15, 2024 Admitting Diagnosis Chest pain Wounds: None Labs/Diagnostic Data: Laboratory Results Test 04/15/24 06:46 04/14/24 20:58 04/14/24 11:15 04/12/24 05:19 White Blood Count 10.7 10^3/uL (4.4-10.8) Red Blood Count 3.45 10^6/uL (4.0-5.20) Hemoglobin 10.9 g/dL (12.2-16.2) Hematocrit 32.5 % (36.0-46.0) Mean Corpuscular Volume 94.0 fL (80.0-100.0) Mean Corpuscular Hemoglobin 31.6 pg (28.0-32.0) Mean Corpuscular Hemoglobin Concent 33.6 g/dL (32.0-36.0) Red Cell Distribution Width 13.5 % (11.8-14.3) Platelet Count 382 10^3/uL (140-450) Mean Platelet Volume 8.0 fL (6.9-10.8) Neutrophils (%) (Auto) 63.2 % (37.0-80.0) Lymphocytes (%) (Auto) 25.2 % (10.0-50.0) Monocytes (%) (Auto) 7.3 % (0.0-12.0) Eosinophils (%) (Auto) 3.7 % (0.0-7.0) Basophils (%) (Auto) 0.6 % (0.0-2.0) Neutrophils # (Auto) 6.8 10 ^3/uL (1.6-8.6) Lymphocytes # (Auto) 2.7 10 ^3/uL (0.4-5.4) Monocytes # (Auto) 0.8 10 ^3/uL (0-1.3) Eosinophils # (Auto) 0.4 10 ^3/uL (0-0.8) Basophils # (Auto) 0.1 10 ^3/uL (0-0.2) Nucleated Red Blood Cells 0.0 % Creatinine 2.95 mg/dL (0.550-1.02) Glomerular Filtration Rate Calc 17 mL/min (>90) Random Vancomycin Level 10.5 ug/mL (5-10) POC Glucose 246 mg/dl (70-106) Urine Creatinine 102.26 mg/dL (30.0-125.0) Urine Sodium 54 mmol/L (40-220) Urine Total Protein 558.6 mg/dL (1-14) Sodium Level 139 mmol/L (136-145) Potassium Level 4.8 mmol/L (3.5-5.1) Chloride Level 110 mmol/L (98-107) Carbon Dioxide Level 17 mmol/L (20-31) Anion Gap 12 (5-15) Blood Urea Nitrogen 33 mg/dL (9-23) BUN/Creatinine Ratio 13.7 (10.0-20.0) Serum Glucose 307 mg/dL (74-106) Calcium Level 9.7 mg/dL (8.7-10.4) Total Bilirubin 0.2 mg/dL (0.2-1.0) Aspartate Amino Transferase (AST) 11 U/L (13-40) Alanine Aminotransferase (ALT) 11 U/L (7-40) Alkaline Phosphatase 84 U/L (46-116) Total Protein 7.1 g/dL (5.7-8.2) Albumin 4.2 g/dL (3.2-4.8) Test 04/11/24 22:17 04/11/24 21:45 04/11/24 21:33 Troponin I High Sensitivity 8 ng/L (</=34) Urine Color Colorless (Yellow) Urine Clarity Clear (Clear) Urine pH 6.0 (5.0-9.0) Urine Specific [place] 1.010 (1.001-1.035) Urine Protein 2+ (Negative) Urine Ketones Negative (Negative) Urine Blood Trace /uL (Negative) Urine Nitrite Negative (Negative) Urine Bilirubin Negative (Negative) Urine Urobilinogen Normal mg/dL (Negative) Urine Leukocyte Esterase Negative /uL (Negative) Urine RBC 1 /hpf (0 - 4) Urine WBC <1 /hpf (0 - 5) Urine Squamous Epithelial Cells Few /hpf (<5) Urine Bacteria None seen /hpf (None Seen) Urine Glucose 2+ mg/dL (Normal) Magnesium Level 1.7 mg/dL (1.6-2.6) B-Type Natriuretic Peptide 216.55 pg/mL (0-100) Other Laboratory Tests 04/15/24 06:46 04/12/24 05:19 Brief Hx & Hospital Course: 63-year-old female with a history of hypertension hypercholesterolemia uncontrolled diabetes coronary artery disease history of [place] TIA status post left BKA 2013 history of right 1st and 2nd toe amputation 2007 chronic nonhealing right foot infection being scheduled to see her podiatric in [place] came in complaining of chest pain. Troponin negative x3 patient blood pressure was high patient was placed on metoprolol succinate Procardia XL. Other medications were continued. Seen by Cardiology Dr. Nicholas felt the chest pain is secondary to uncontrolled hypertension. He also advised by the patient to see her game agent with the [facility] for peripheral angiogram for the bilateral lower extremity arterial stenosis and patient was advised accordingly. Discharged home. Prescription transmitted to the [facility]. Consults/Reason for consult Cardiology Dr. Nicholas Operations or Procedures Echocardiogram Peripheral arterial ultrasound Condition at Discharge: Fair Final Diagnosis/Problems List Chest pain negative troponins: Cardiology consult Dr. Nicholas appreciated, echo 60 % ejection fraction Hypercholesterolemia History of coronary artery disease Uncontrolled diabetes 30 years: Insulin sliding scale History of [place] History of TIA History of left BKA 2012 History of right 1st and 2nd toe amputation 2007 Bilateral peripheral arterial disease: We will await further plan by Dr. Nicholas; per patient she will follow up with her Cardiology through her [facility] Chronic nonhealing right foot infection: Patient has a scheduled appointment with her computerized machine fabric cutter Ashok Moran on 04-17-24 for right forefoot amputation vancomycin per pharmacy Hypertensive emergency: Nifedipine Colon cancer status post resection Chronic anemia PAULINE on CKD: nephro consult appreciated Discharge Disposition: Home Discharge Instruct/Medications Diet: Cardiac 2g Na,low cholest Activity: Light activity Follow Up/Referral: Follow up with your primary Dr and game agent through [facility] Continue all your previous home medications Use new medications as prescribed You need peripheral angiogram regarding your bilateral lower extremity arterial disease Medications: [place] Procardia XL Lipitor Metoprolol succinate Transmitted to pharmacy 39 (Time taken for discharge summary 39 minutes) Discharge Statement: "Patient was advised to return to the ER or call 911 if any headaches, dizziness, shortness of breath, chest pain, abdominal pain, bleeding, fevers, or worsening of medical condition. Patient was counseled about treatment plan, medications, possible side effects, patientverbalized understanding. All questions were answered to the best of my ability. This discharge took greater then 30 minutes in planning, reviewing documentation, counseling the patient, and discussing with other team members." ASSESSMENT ASSESSMENT Hospital Course Uneventful Assessment Chest pain negative troponins: Cardiology consult Dr. Nicholas appreciated, echo 60 % ejection fraction Hypercholesterolemia History of coronary artery disease Uncontrolled diabetes 30 years: Insulin sliding scale History of [place] History of TIA History of left BKA 2012 History of right 1st and 2nd toe amputation 2007 Bilateral peripheral arterial disease: We will await further plan by Dr. Nicholas; per patient she will follow up with her Cardiology through her [facility] Chronic nonhealing right foot infection: Patient has a scheduled appointment with her computerized machine fabric cutter Ashok Moran on 04-17-24 for right forefoot amputation vancomycin per pharmacy Hypertensive emergency: Nifedipine Colon cancer status post resection Chronic anemia PAULINE on CKD: nephro consult appreciated Date of Service: Apr 15, 2024 Billing Provider: WINNIE KRISHNAN MD Common Visit Codes: [id number] DISCH DAY >30min WINNIE KRISHNAN MD Apr 15, 2024 09:56
[2024-04-15 13:00] VITALS: BP 149/62; PULSE 83; RESP 18; TEMP 97.9; O2SAT 96
== END 2024-04-15 15:30 | disposition home or self-care (01) | DRG 304 ==
LOC: ER 21:25 → TELE 23:36 → TELE-CENTR 04-12 18:16 → CENTRAL 04-12 18:23 → TELE-CENTR 04-13 07:39
PROVIDERS: ADMIT Nurse Practitioner Family; ATTEND Family Medicine
DX: I16.1 Hypertensive emergency (principal); N17.0 Acute kidney failure with tubular necrosis; N18.4 Chronic kidney disease, stage 4 (severe); I24.9 Acute ischemic heart disease, unspecified; E11.65 Type 2 diabetes mellitus with hyperglycemia; E11.22 Type 2 diabetes mellitus with diabetic chronic kidney disease; I12.9 Hypertensive chronic kidney disease with stage 1 through stage 4 chronic kidney disease, or unspecified chronic kidney disease; D63.1 Anemia in chronic kidney disease; I25.10 Atherosclerotic heart disease of native coronary artery without angina pectoris; E66.9 Obesity, unspecified; E78.00 Pure hypercholesterolemia, unspecified; E11.51 Type 2 diabetes mellitus with diabetic peripheral angiopathy without gangrene; N27.1 Small kidney, bilateral; Z89.511 Acquired absence of right leg below knee; Z89.512 Acquired absence of left leg below knee; Z86.73 Personal history of transient ischemic attack (TIA), and cerebral infarction without residual deficits; Z79.4 Long term (current) use of insulin; Z79.02 Long term (current) use of antithrombotics/antiplatelets; Z87.891 Personal history of nicotine dependence; Z95.1 Presence of aortocoronary bypass graft; Z95.5 Presence of coronary angioplasty implant and graft; Z85.038 Personal history of other malignant neoplasm of large intestine; I25.2 Old myocardial infarction; Z68.26 Body mass index [BMI] 26.0-26.9, adult; Z88.2 Allergy status to sulfonamides; Z88.8 Allergy status to other drugs, medicaments and biological substances; Z79.899 Other long term (current) drug therapy
CPT/HCPCS: 36415; 76775; 80053; 80202; 82565; 82570; 82962; 83036; 84156; 84300; 85025; 93005; 93306; 93925; 99291; G0378; J1815; J2405